=== PATIENT | female | born 1955 | race Caucasian/White ===

== ENCOUNTER 2019-09-04 00:24 | Day surgery (SDC) | payer OTHER, SELFPAY ==
[2019-08-22 09:19] VITALS: BMI 28.1
[2019-09-04] VITALS (7 sets, daily range): BP systolic 121–174; BP diastolic 76–89; PULSE 77–90; RESP 15–20; TEMP 36.3–36.7; O2SAT 93–100
--- NOTE | ~2019-09-04 | XR_ITS ---
EXAMINATION: XR retrograde pyelo w/stent RT EXAM DATE: 09/04/2019 12:49 INDICATION: Bladder mass. TECHNIQUE: Fluoroscopy used during XR retrograde pyelo w/stent RT performed by Dr. Ramana saavedra MD. The DAP for this procedure was 0.3 mGym2. FINDINGS: Right ureter was cannulated, injected and a double-J ureteral stent was placed in expected position. Correlate with procedure note. IMPRESSION: Fluoroscopy used during XR retrograde pyelo w/stent RT. Reviewed, dictated and finalized at location A. [employer]
--- NOTE | 2019-09-04 10:09 | WPDHPUPDATE1 ---
History and Physical Update Update Date/Time: 09/04/19 10:09 History and Physical has been reviewed, including an updated exam of the patient. There are NO changes in the patient's condition. Risks, benefits, and alternatives have been discussed and questions answered. Patient agrees to proceed with procedure.
[2019-09-04] MEDS: LACTATED RINGERS 1,000 ML 30 ML IV CONT ×2 (11:20→12:53)
--- NOTE | 2019-09-04 11:36 | WPDANESEPPF ---
Anes - Initial Pre Proc Eval Procedure: Operation Date: 09/04/19 13:00 Proposed Procedures p Trans Urethral Resection Bladder Tumor - Ramana Dominguez MD s Possible Right Ureteroscopy, Possible Right Retrograde, Possible Stent Placement - Ramana Dominguez MD Date/Time: 09/04/19 11:36 Surgeon: Ramana Dominguez MD Pre Op Diagnosis: Bladder Mass Patient Data Age: 64 Gender: F Height: 5 ft 8 in Weight: 84 kg Allergies Allergy/AdvReac Type Severity Reaction Status Date / Time sulfabenzamide Allergy Intermediate Hives Verified 08/22/19 09:24 tetracycline Allergy Intermediate Hives Verified 08/22/19 09:24 Zpklcvb-Zjh-And Reductase Allergy Mild Joint Pain Verified 08/22/19 09:24 Inhibitor Home Medications Medication Instructions Recorded Confirmed Type amlodipine 5 mg tablet 5 mg PO DAILY #90 tablet 07/04/19 08/22/19 Rx lisinopril 40 mg tablet 40 mg PO DAILY #90 tablet 07/04/19 08/22/19 Rx metoprolol succinate 50 mg 50 mg PO DAILY #90 tablet 07/04/19 08/22/19 Rx tablet,extended release 24 hr pravastatin 10 mg PO DAILY 08/22/19 08/22/19 History Patient hx anesthesia problems: none Family hx anesthesia problems: none Anes - Eval Final PreProcedure Day of Procedure 09/04/19 11:36 Patient weight: overweight Heart: regular rate and rhythm Lungs: clear to auscultation Airway: Mallampati scale class II Neurological: alert and oriented Last oral intake: >/= 8 hours ASA classification: II Emergent: no Anesthetic plan: proceed Anesthesia type and monitoring: general LMA and standard monitoring Informed Consent: The patient's anesthetic plan and its attendant risks and benefits were discussed with the patient/family/POA. Questions were solicited and answers provided to the satisfaction of the patient/family/POA.
[2019-09-04] MEDS: ceFAZolin 2 GM/D5W 50 ML 2 GM/50 ML BAG IVPB (11:53)
--- NOTE | 2019-09-04 12:49 | PM.PROC ---
Procedure Note - Detailed Date of procedure: 09/04/19 Pre-op diagnosis: Bladder Mass Post-op diagnosis: same Procedure performed: Cystoscopy with transurethral resection of large bladder tumor 5 to 6 cm area with unroofing of right ureteral orifice, right retrograde pyelogram, right ureteral stent placement 6 [place] Islander contour Description of procedure: Patient was taken to the operative suite and correctly identified. Once general anesthesia was obtained she was placed in a low lying dorsal lithotomy position and prepped and draped in the usual sterile fashion. A 24 [place] Islander resectoscope sheath was inserted into the bladder. She has a large tumor along the floor on the right which is right adjacent to the right ureteral orifice. There are actually some papillary fronds that are on the orifice ridge. The area in question is approximately 6 cm as there are other lesions posterior and lateral to this large tumor. We went ahead and resected the tumor. The tumor base was resected separately and sent for pathology. In order to resect this completely we had to unroof the right ureteral orifice. We were then able to manipulate a Glidewire into the orifice. It appeared slightly tight thus we did not attempt ureteroscopy at this setting. We placed a [place] over the guidewire and did a pyelogram for confirmation placement of the wire. We did not see any discrete filling defects in the renal collecting system. She the a 6 [place] Islander contour stent was then placed with the proximal end coiled in the renal pelvis and the distal end in the bladder. 2% viscous lidocaine was inserted into the urethra. Sixteen [place] Islander Lomax was placed and inflated with 10 cc of sterile water. This will be removed in a day or 2. The stent will remain in for a good 4-6 weeks. We will make a decision regarding ureteroscopy with cystoscopy in the OR in 3 months time Anesthesia: BULMARO Surgeon: Ramana Dominguez MD Drains: Yes Packing: No Pathology: yes Complications: No immediate complications Condition: stable Disposition: PACU
--- NOTE | 2019-09-04 14:54 | SUR.PHASEII ---
1445 cameron cath bag replaced with a leg bag
== END 2019-09-04 14:52 | disposition home or self-care (01) ==
PROVIDERS: PCP Internal Medicine; Visit Provider Urology
PROC: 0TBB8ZZ Excision of Bladder, Via Natural or Artificial Opening Endoscopic (ICD-10-PCS; CPT 52240; principal; 2019-09-04 13:00)
PROC: (CPT 52352; 2019-09-04 13:00)
DX: C67.0 Malignant neoplasm of trigone of bladder (principal)
CPT/HCPCS: 52240; 52290; 74420; 88305; A9270; C1758; C1769; C2617; J0690; J1100; J2250; J2405; J2704; J3010; J7120; Q9966; Q9968

== ENCOUNTER 2020-01-25 14:20 | Outpatient (CLI) | payer OTHER, SELFPAY | END 2020-01-25 14:21 | disposition home or self-care (01) | LOC: ANHSURGERY 14:23 | PROVIDERS: PCP Internal Medicine; Visit Provider Urology | DX: Z01.818 Encounter for other preprocedural examination (principal); C67.9 Malignant neoplasm of bladder, unspecified | CPT/HCPCS: 87086 ==

== ENCOUNTER 2020-02-02 06:11 | Outpatient (CLI) | payer OTHER, SELFPAY ==
[2020-02-02 17:27] LABS: SARS-CoV-2 RNA PCR Negative
== END 2020-02-02 06:12 | disposition home or self-care (01) ==
LOC: ANHCOVIDDT 06:12
PROVIDERS: PCP Internal Medicine; Visit Provider Urology
DX: Z01.812 Encounter for preprocedural laboratory examination (principal); Z11.59 Encounter for screening for other viral diseases
CPT/HCPCS: 87635; C9803; U0003

== ENCOUNTER 2020-02-05 02:54 | Day surgery (SDC) | payer OTHER, SELFPAY ==
[2020-01-24 14:41] VITALS: BMI 28.3
--- NOTE | ~2020-02-05 | XR_ITS ---
EXAMINATION: XR retrograde pyelogram RT DATE: 02/05/2020 15:27 CDT INDICATION: History of bladder mass. History of renal stones. TECHNIQUE: 5 fluoroscopic images from right retrograde pyelogram are submitted for review. 14 seconds of fluoroscopy. FINDINGS: There is retrograde filling of the right ureter which is normal in course and caliber. Righ t renal collecting system demonstrates normal calyceal cupping. No filling defects are identified. No hydronephrosis. Bladder not visualized. IMPRESSION: 1. Unremarkable right retrograde pyelogram.. Correlate with real time procedural findings for detail s. Reviewed, dictated and finalized at location A. IMPRESSION: 1. Unremarkable right retrograde pyelogram.. Correlate with real time procedur al findings for details.
[2020-02-05 06:51] VITALS: BP 113/64; PULSE 67; RESP 20; TEMP 36.9; O2SAT 98
[2020-02-05] MEDS: LACTATED RINGERS 1,000 ML 30 ML IV CONT ×2 (07:00→09:38)
--- NOTE | 2020-02-05 07:17 | WPDHPUPDATE1 ---
History and Physical Update Update Date/Time: 02/05/20 07:17 History and Physical has been reviewed, including an updated exam of the patient. There are NO changes in the patient's condition. Risks, benefits, and alternatives have been discussed and questions answered. Patient agrees to proceed with procedure.
[2020-02-05 07:33] LABS: INR 0.9; Prothrombin Time 11.9 Seconds (11.1-14.7)
[2020-02-05 07:34] LABS: Partial Thromboplastin Time 28.6 SECONDS (22.3-36.8)
--- NOTE | 2020-02-05 08:13 | WPDANESEPPF ---
Anes - Initial Pre Proc Eval Procedure: Operation Date: 02/05/20 08:30 Proposed Procedures p Cystoscopy, Right Retrograde Pyelogram, Bladder Biopsy with Fulgeration, Possible Right Ureteroscopy - Ramana Dominguez MD Date/Time: 02/05/20 08:13 Surgeon: Ramana Dominguez MD Pre Op Diagnosis: Bladder Cancer,Gross Hematuria Patient Data Age: 64 Gender: F Height: 5 ft 8 in Weight: 84.2 kg Last Vital Signs Temp 36.9 C 02/05/20 06:51 Pulse 67 02/05/20 06:51 Resp 20 02/05/20 06:51 BP 113/64 02/05/20 06:51 Pulse Ox 98 02/05/20 06:51 Allergies Allergy/AdvReac Type Severity Reaction Status Date / Time sulfabenzamide Allergy Intermediate Hives Verified 02/05/20 07:56 tetracycline Allergy Intermediate Hives Verified 02/05/20 07:56 Home Medications Medication Instructions Recorded Confirmed Type amlodipine 10 mg tablet 10 mg PO DAILY #90 tablet 12/18/19 02/05/20 Rx lisinopril 40 mg tablet 40 mg PO DAILY #90 tablet 12/18/19 01/24/20 Rx metoprolol succinate 50 mg 50 mg PO DAILY #90 tablet 12/18/19 02/05/20 Rx tablet,extended release 24 hr pravastatin 20 mg tablet 20 mg PO DAILY #90 tablet 12/18/19 01/24/20 Rx Laboratory Tests 02/05/20 07:01 PT 11.9 Seconds Seconds (11.1-14.7) INR 0.9 APTT 28.6 SECONDS SECONDS (22.3-36.8) Patient hx anesthesia problems: none Family hx anesthesia problems: none Anes - Eval Final PreProcedure Day of Procedure 02/05/20 08:13 Patient weight: overweight Heart: regular rate and rhythm Lungs: clear to auscultation Airway: Mallampati scale class II Neurological: alert and oriented Last oral intake: >/= 8 hours ASA classification: II Emergent: no Anesthetic plan: proceed Anesthesia type and monitoring: general LMA and standard monitoring Informed Consent: The patient's anesthetic plan and its attendant risks and benefits were discussed with the patient/family/POA. Questions were solicited and answers provided to the satisfaction of the patient/family/POA.
[2020-02-05] MEDS: ceFAZolin 2 GM/D5W 50 ML 2 GM/50 ML BAG IVPB (08:55)
[2020-02-05] MEDS: LIDOCAINE HCL 2% GEL UROJET 10 ML PKG MUCOUS MEM (09:08)
[2020-02-05] MEDS: KETOROLAC 30 MG/ML VIAL (*BKC) 15 MG IV PUSH (09:29)
--- NOTE | 2020-02-05 09:31 | P.OP_ITS ---
Procedure Note - Detailed Date of procedure: 02/05/20 Pre-op diagnosis: Bladder Cancer,Gross Hematuria Post-op diagnosis: same Procedure performed: Cystoscopy, right retrograde pyelogram, flexible and and rigid right ureteroscopy, bladder biopsy with fulguration. Description of procedure: Patient was taken the operative suite and correctly identified. Once general anesthesia was obtained she was placed in the dorsal lithotomy position prepped and draped usual sterile fashion. Twenty-two Palauan scope was inserted in the bladder. The bladder inspected in its entirety. There are 3 small little papillary lesions near the dome of the bladder. Each 1 measures approximately couple mm. The rest of the bladder shows no evidence of tumors. Left ureteral orifice normal anatomic position. The right ureteral orifice actually appears patent from a prior unroofing. At this point time a 5 Palauan ureteral catheter was inserted into the right ureteral orifice and a pyelogram was performed. There were no filling defects. Given the location of the prior tumor as well as unroofing of the orifice we went ahead and placed a rigid ureteral scope into the distal orifice. There were no distal tumors noted at this time. Of any flexible ureteral scope was then inserted all the way up to the kidney and the kidney was inspected in its entirety. There are no tumors or irregularities noted at this time. Scope was removed. We then went ahead and used a cold cup biopsy to really move the small lesions at the dome of the bladder. A [place] was used to fulgurate the base. There was good hemostasis at termination of procedure. 2% viscous lidocaine was inserted into the urethra and patient is taken to recovery room stable condition. Path results will be available in a week's time. She is instructed to call for that. The most lik jostin scenario is that she will require a office visit was cysto in 3 months time. Anesthesia: GLMA Surgeon: Ramana Dominguez MD Drains: No Packing: No Pathology: yes Complications: No immediate complications Condition: stable Disposition: PACU
[2020-02-05 09:38] VITALS: BP 97/60; PULSE 60; RESP 16; O2SAT 100
[2020-02-05 09:50] VITALS: BP 118/65; PULSE 58; RESP 12; O2SAT 99
[2020-02-05 10:00] VITALS: BP 127/68; PULSE 60; RESP 12; O2SAT 100
[2020-02-05 10:03] VITALS: BP 103/89; PULSE 70; RESP 12
[2020-02-05 10:25] VITALS: BP 137/70; PULSE 67; RESP 12
== END 2020-02-05 10:43 | disposition home or self-care (01) ==
PROVIDERS: PCP Internal Medicine; Visit Provider Urology
PROC: (CPT 52352; principal; 2020-02-05 08:30)
DX: C67.1 Malignant neoplasm of dome of bladder (principal)
CPT/HCPCS: 52204; 36415; 74420; 85610; 85730; 87635; 88305; A9270; C1758; C1769; C1887; C9803; J0690; J1885; J2250; J2370; J2405; J2704; J3010; J7120; Q9966; U0003

== ENCOUNTER 2020-04-03 10:10 | Outpatient (CLI) | payer OTHER, SELFPAY ==
[2020-04-03 10:42] LABS: Basophils Absolute Auto 0.1 K/mm3 (0.0-0.1); Basophils Percent Auto 0.8 % (0.2-1.2); Eosinophils Absolute Auto 0.1 K/mm3 (0-0.3); Eosinophils Percent Auto 1.2 % (0-4.4); Hematocrit 44.4 % (37.0-47.0); Hemoglobin 15.5 g/dL (12.0-15.0); Immature Granulocyte Absolute 0.03 K/mm3 (0.00-0.031); Immature Granulocyte Percent A 0.3 % (0-0.5); Lymphocytes Absolute Auto 1.69 K/mm3 (0.9-3.2); Lymphocytes Percent Auto 18.9 % (18.3-44.2); Mean Corpuscular HGB Conc 34.9 g/dl (32-36); Mean Corpuscular Hemoglobin 30.2 pg (26-34); Mean Corpuscular Volume 86.5 fl (80-100); Mean Platelet Volume 11.6 fl (7.4-10.4); Monocytes Absolute Auto 0.6 K/mm3 (0.1-0.6); Monocytes Percent Auto 6.3 % (2.6-8.5); Neutrophils Absolute Auto 6.5 K/mm3 (1.3-6.7); Neutrophils Percent Auto 72.5 % (45.5-73.1); Platelet Count Result 187 k/mm3 (150-375); Red Blood Count 5.13 M/mm3 (4.2-5.4); Red Cell Distribution Width 12.8 % (11.5-14.5); White Blood Count 8.9 K/mm3 (4.5-10.0)
[2020-04-03 10:55] LABS: Alanine Aminotransferase 14 U/L (4-35); Albumin Level 4.7 g/dL (3.5-5.1); Alkaline Phosphatase 107 U/L (38-126); Anion Gap 7 mmol/L (8-16); Aspartate Amino Transferase 29 U/L (14-36); Bilirubin,Total 0.6 mg/dL (0.2-1.3); Blood Urea Nitrogen 14 mg/dL (7-17); Calcium 9.6 mg/dL (8.4-10.2); Carbon Dioxide 27 mmol/L (22-30); Chloride 103 mmol/L (98-107); Cholesterol 236 mg/dL (0-200); Estimated Glomerular Filt Rate > 60; Glucose 104 mg/dL (65-105); HDL Direct 49 mg/dL; Potassium 3.8 mmol/L (3.4-5.0); Sodium 137 mmol/L (137-145); Triglycerides 178 mg/dL (<150)
[2020-04-03 11:06] LABS: LDL Cholesterol Direct 148 mg/dL
== END 2020-04-03 10:11 | disposition home or self-care (01) ==
PROVIDERS: PCP Internal Medicine; Visit Provider Internal Medicine
DX: I10 Essential (primary) hypertension (principal); E78.5 Hyperlipidemia, unspecified
CPT/HCPCS: 36415; 80053; 80061; 84443; 85025

== ENCOUNTER 2020-05-28 10:17 | Outpatient (CLI) | payer OTHER, SELFPAY ==
[2020-05-28 11:23] LABS: INR 0.9; Prothrombin Time 12.2 Seconds (11.1-14.7)
[2020-05-28 11:24] LABS: Partial Thromboplastin Time 30.9 SECONDS (22.3-36.8)
== END 2020-05-28 10:18 | disposition home or self-care (01) ==
LOC: ANHSURGERY 10:20
PROVIDERS: PCP Internal Medicine; Visit Provider Urology
DX: C67.9 Malignant neoplasm of bladder, unspecified (principal); Z01.818 Encounter for other preprocedural examination
CPT/HCPCS: 36415; 85610; 85730; 87086

== ENCOUNTER 2020-05-31 01:25 | Outpatient (CLI) | payer OTHER, SELFPAY ==
[2020-05-31 22:13] LABS: SARS-CoV-2 RNA PCR Negative
== END 2020-05-31 01:26 | disposition home or self-care (01) ==
LOC: ANHCOVIDDT 01:26
PROVIDERS: PCP Internal Medicine; Visit Provider Urology
DX: Z01.812 Encounter for preprocedural laboratory examination (principal); Z20.828 Contact with and (suspected) exposure to other viral communicable diseases
CPT/HCPCS: 87635; C9803; U0003

== ENCOUNTER 2020-06-03 00:21 | Day surgery (SDC) | payer OTHER, SELFPAY ==
[2020-05-22 08:52] VITALS: BMI 29.4
--- NOTE | 2020-06-02 14:22 | WPDANESEPPF ---
Anes - Initial Pre Proc Eval Procedure: Operation Date: 06/03/20 12:00 Proposed Procedures p Cystoscopy - Ramana Dominguez MD s Transurethral Resection Bladder Tumor With Mitomycin C Instillation - Ramana Dominguez MD Date/Time: 06/02/20 14:22 Surgeon: Ramana Dominguez MD Pre Op Diagnosis: Bladder Cancer Patient Data Age: 65 Gender: F Height: 1.69 m Weight: 84 kg Allergies Allergy/AdvReac Type Severity Reaction Status Date / Time sulfabenzamide Allergy Intermediate Hives Verified 06/03/20 10:45 tetracycline Allergy Intermediate Hives Verified 06/03/20 10:45 Home Medications Medication Instructions Recorded Confirmed Type amlodipine 10 mg tablet 10 mg PO DAILY #90 tablet 12/18/19 06/03/20 Rx lisinopril 40 mg tablet 40 mg PO DAILY #90 tablet 12/18/19 06/03/20 Rx metoprolol succinate 50 mg 50 mg PO DAILY #90 tablet 12/18/19 06/03/20 Rx tablet,extended release 24 hr pravastatin 40 mg tablet 40 mg PO DAILY #90 tablet 04/10/20 06/03/20 Rx multivitamin [Multi-Daily] 1 tablet QAM 05/22/20 06/03/20 History Patient hx anesthesia problems: none Family hx anesthesia problems: none PMF Past Medical History Medical History Bladder cancer Dyslipidemia Essential hypertension GERD (gastroesophageal reflux disease) Overweight (BMI 25.0-29.9) Tobacco use Social History Social History Additional smoking assessment comments: STATES 1/2PK/DAY-QUIT JUL 2019, BUT HAS 1 CIGARETT/WEEK Alcohol intake: never Substance use: current Substance use type: marijuana Other substance usage details: STATES OCCASIONAL USUAGE Living arrangements: alone Spiritual care concerns: No Anes - Eval Final PreProcedure Day of Procedure 06/02/20 14:22 Patient weight: obese Heart: regular rate and rhythm Lungs: clear to auscultation and normal air movement Airway: Mallampati scale class II Neurological: alert and oriented Last oral intake: >/= 8 hours ASA classification: III Emergent: no Anesthetic plan: proceed Anesthesia type and monitoring: general GIVS Informed Consent: The patient's anesthetic plan and its attendant risks and benefits were discussed with the patient/family/POA. Questions were solicited and answers provided to the satisfaction of the patient/family/POA.
[2020-06-03] VITALS (9 sets, daily range): BP systolic 119–137; BP diastolic 54–79; PULSE 63–80; RESP 12–18; TEMP 36.2–36.9; O2SAT 92–100
[2020-06-03] MEDS: LACTATED RINGERS 1,000 ML 30 ML IV CONT (10:37)
--- NOTE | 2020-06-03 12:03 | WPDHPUPDATE1 ---
History and Physical Update Update Date/Time: 06/03/20 12:03 History and Physical has been reviewed, including an updated exam of the patient. There are NO changes in the patient's condition. Risks, benefits, and alternatives have been discussed and questions answered. Patient agrees to proceed with procedure. Proceed with cysto, turbt
--- NOTE | 2020-06-03 12:19 | PM.IMHP ---
H&P: HPI History of Present Illness Date/Time: 06/03/20 12:19 Chief complaint: Bladder Cancer Narrative: Soumya Vasquez is a 65 year old female with history of bladder carcinoma presents for cysto, turbt Review of Systems Review of Systems: All systems reviewed & are unremarkable except as noted in HPI and below PMFSH Past Medical History Medical History Bladder cancer Dyslipidemia Essential hypertension GERD (gastroesophageal reflux disease) Overweight (BMI 25.0-29.9) Tobacco use Social History Social History Additional smoking assessment comments: STATES 1/2PK/DAY-QUIT JUL 2019, BUT HAS 1 CIGARETT/WEEK Alcohol intake: never Substance use: current Substance use type: marijuana Other substance usage details: STATES OCCASIONAL USUAGE Living arrangements: alone Spiritual care concerns: No Meds Home Medications and Allergies Home Medications Medication Instructions Recorded Confirmed Type amlodipine 10 mg tablet 10 mg PO DAILY #90 tablet 12/18/19 06/03/20 Rx lisinopril 40 mg tablet 40 mg PO DAILY #90 tablet 12/18/19 06/03/20 Rx metoprolol succinate 50 mg 50 mg PO DAILY #90 tablet 12/18/19 06/03/20 Rx tablet,extended release 24 hr pravastatin 40 mg tablet 40 mg PO DAILY #90 tablet 04/10/20 06/03/20 Rx multivitamin [Multi-Daily] 1 tablet QAM 05/22/20 06/03/20 History Allergies Allergy/AdvReac Type Severity Reaction Status Date / Time sulfabenzamide Allergy Intermediate Hives Verified 06/03/20 10:45 tetracycline Allergy Intermediate Hives Verified 06/03/20 10:45 Vital Signs Vital Signs - 24 hr 06/03/20 10:51 Temperature 36.9 C Pulse Rate 78 Respiratory Rate 18 Blood Pressure 135/79 Pulse Oximetry 98 Exam Const: General: cooperative Orientation/consciousness: oriented to person, oriented to place, oriented to time and patient oriented x3 HENMT: Head: normal to inspection Ears: hearing grossly normal bilaterally General nose exam: Normal external nose present Face and sinus: normal facial exam Eyes: General: appearance normal, both eyes and all related structures Chest: Chest palpation & inspection: normal inspection of the chest Resp: Effort & Inspection: normal respiratory effort Cardio: Rate: regular rate GI: GI Palp: No abdominal tenderness Assessment and Plan Assessment and plan (1) Bladder cancer: Qualifiers: Bladder location: unspecified site Qualified Code(s): C67.9 - Malignant neoplasm of bladder, unspecified Code(s): C67.9 - Malignant neoplasm of bladder, unspecified Status: Acute Additional Plan cysto with turbt possible mitomycin
[2020-06-03] MEDS: ceFAZolin 2 GM/D5W 50 ML 2 GM/50 ML BAG IVPB (12:52)
[2020-06-03] MEDS: LIDOCAINE HCL 2% GEL UROJET 10 ML PKG MUCOUS MEM (13:25)
--- NOTE | 2020-06-03 13:32 | PM.PROC ---
Procedure Note - Detailed Date of procedure: 06/03/20 Pre-op diagnosis: Bladder Cancer Post-op diagnosis: same Procedure performed: Cysto with transurethral resection bladder tumor small area Description of procedure: Patient is taken the operative suite and correctly identified. Once anesthesia was obtained she was placed in dorsal lithotomy position prepped draped usual sterile fashion. Twenty-four [place] resectoscope sheath inserted in the bladder. She has a small tumor on the floor just distal to the left ureteral orifice measuring approximately 5-6 mm. Results some irregularity just distal to the right UO which we fulgurated. She had approximately 4 tumors near the dome which we fulgurated her excised. There was good hemostasis at termination of procedure. Sixteen [place] Lomax was placed after 2% viscous lidocaine was inserted. She is taken recovery room stable condition where mitomycin will be instilled. Anesthesia: GLMA Surgeon: Ramana Dominguez MD Drains: Yes Packing: No Pathology: yes Complications: No immediate complications Condition: stable Disposition: PACU
--- NOTE | 2020-06-03 14:13 | PM.PROC ---
Procedure Note - Detailed Date of procedure: 06/03/20 Pre-op diagnosis: Bladder Cancer Post-op diagnosis: same Procedure performed: Mitomycin installation Description of procedure: patient is in the recovery room. Sixteen Polish Lomax is indwelling. She was prepped in a sterile fashion the mitomycin 40 mg in 40 cc was instilled without difficulty. She will then rotated with 15 minutes for an hour. It will be removed at termination of this time frame. Catheter will be removed and patient will call for results in a week's time. Anesthesia: none Surgeon: Ramana Dominguez MD Drains: Yes Packing: No Pathology: none sent Complications: No immediate complications Condition: stable Disposition: PACU
[2020-06-03] MEDS: fentaNYL CITRATE INJ (*CRX) 100 MCG/2 ML VIAL 25 MCG IV PUSH ×4 (14:14→14:40)
== END 2020-06-03 15:55 | disposition home or self-care (01) ==
PROVIDERS: PCP Internal Medicine; Visit Provider Urology
PROC: (CPT 52352; principal; 2020-06-03 12:00)
PROC: 0TBB8ZZ Excision of Bladder, Via Natural or Artificial Opening Endoscopic (ICD-10-PCS; CPT 52234; 2020-06-03 12:00)
DX: C67.1 Malignant neoplasm of dome of bladder (principal); C67.0 Malignant neoplasm of trigone of bladder; I10 Essential (primary) hypertension; E78.5 Hyperlipidemia, unspecified; K21.9 Gastro-esophageal reflux disease without esophagitis; F17.210 Nicotine dependence, cigarettes, uncomplicated; F12.90 Cannabis use, unspecified, uncomplicated; E66.9 Obesity, unspecified; Z68.29 Body mass index [BMI] 29.0-29.9, adult
CPT/HCPCS: 52234; 51720; 88305; A9270; C1769; J0690; J1100; J2250; J2405; J2704; J3010; J7120; J9280

== ENCOUNTER 2020-10-27 10:00 | Outpatient (CLI) | payer OTHER, SELFPAY ==
[2020-10-27 10:31] LABS: Basophils Absolute Auto 0.1 K/mm3 (0.0-0.1); Basophils Percent Auto 0.8 % (0.2-1.2); Eosinophils Absolute Auto 0.2 K/mm3 (0-0.3); Eosinophils Percent Auto 1.9 % (0-4.4); Hematocrit 44.2 % (37.0-47.0); Hemoglobin 14.9 g/dL (12.0-15.0); Immature Granulocyte Absolute 0.01 K/mm3 (0.00-0.031); Immature Granulocyte Percent A 0.1 % (0-0.5); Lymphocytes Absolute Auto 1.81 K/mm3 (0.9-3.2); Lymphocytes Percent Auto 23.2 % (18.3-44.2); Mean Corpuscular HGB Conc 33.7 g/dl (32-36); Mean Corpuscular Hemoglobin 30.4 pg (26-34); Mean Corpuscular Volume 90.2 fl (80-100); Mean Platelet Volume 11.2 fl (7.4-10.4); Monocytes Absolute Auto 0.7 K/mm3 (0.1-0.6); Monocytes Percent Auto 9.1 % (2.6-8.5); Neutrophils Absolute Auto 5.1 K/mm3 (1.3-6.7); Neutrophils Percent Auto 64.9 % (45.5-73.1); Platelet Count Result 183 k/mm3 (150-375); Red Cell Distribution Width 12.3 % (11.5-14.5); White Blood Count 7.8 K/mm3 (4.5-10.0)
[2020-10-27 10:43] LABS: Alanine Aminotransferase 17 U/L (4-35); Albumin Level 4.4 g/dL (3.5-5.1); Alkaline Phosphatase 102 U/L (38-126); Anion Gap 6 mmol/L (8-16); Aspartate Amino Transferase 32 U/L (14-36); Bilirubin,Total 0.4 mg/dL (0.2-1.3); Blood Urea Nitrogen 14 mg/dL (7-17); Calcium 9.4 mg/dL (8.4-10.2); Carbon Dioxide 31 mmol/L (22-30); Chloride 105 mmol/L (98-107); Cholesterol 216 mg/dL (0-200); Estimated Glomerular Filt Rate > 60; Glucose 96 mg/dL (65-105); HDL Direct 51 mg/dL; Potassium 4.4 mmol/L (3.4-5.0); Sodium 142 mmol/L (137-145); Triglycerides 164 mg/dL (<150)
[2020-10-27 10:45] LABS: Hemoglobin A1C 5.4 % (<5.7)
[2020-10-27 10:54] LABS: LDL Cholesterol Direct 125 mg/dL
[2020-10-27 11:01] LABS: Creatinine Urine 304.5 mg/dL
[2020-10-27 11:06] LABS: MALB Creatinine Ratio 5.1 mg/g (0-30); Microalbumin Urine Random 15.5 mg/L (0-16.7)
[2020-10-27 11:16] LABS: Vitamin D 25 Hydroxy 38.2 ng/mL
== END 2020-10-27 10:01 | disposition home or self-care (01) ==
PROVIDERS: PCP Internal Medicine; Visit Provider Internal Medicine
DX: E78.2 Mixed hyperlipidemia (principal); I10 Essential (primary) hypertension; E55.9 Vitamin D deficiency, unspecified; Z79.899 Other long term (current) drug therapy
CPT/HCPCS: 36415; 80053; 80061; 82043; 82306; 83036; 85025

== ENCOUNTER 2020-11-10 10:54 | Outpatient (CLI) | payer OTHER, SELFPAY ==
--- NOTE | ~2020-11-10 | CT_ITS ---
EXAMINATION: CT lung screening DATE: 11/10/2020 11:22 INDICATION: Personal history of nicotine dependence, current smoker with 40 pack year history TECHNIQUE: Computed tomography (CT) of the chest was performed without intravenous contrast. The dose -length product (DLP) was 152.85 mGy-cm. Automated exposure control and iterative reconstruction tech BloomThat were employed. COMPARISON: None FINDINGS: There is mild emphysema. There is a 2 mm subpleural nodule of the left lower lobe on image 58. No pathologically enlarged thoracic lymph nodes are identified. The heart size is normal. Calcifi ed coronary artery atherosclerosis is noted. The lungs are free of acute opacities. There is no pleur al effusion or pneumothorax. There is a 2.8 cm cyst in the upper pole of the right kidney. There is m ild thoracic spondylosis. IMPRESSION: 1. Lung-RADS category 2: Benign appearance or behavior. Continue annual screening with noncontrast lo w-dose chest CT in 12 months. Reviewed, dictated and finalized at location B. IMPRESSION: 1. Lung-RADS category 2: Benign appearance or behavior. Continue annual screeni ng with noncontrast low-dose chest CT in 12 months.
== END 2020-11-10 10:55 | disposition home or self-care (01) ==
PROVIDERS: PCP Internal Medicine; Visit Provider Internal Medicine
DX: Z87.891 Personal history of nicotine dependence (principal)
CPT/HCPCS: 71271

== ENCOUNTER 2020-12-17 10:26 | Outpatient (CLI) | payer OTHER, SELFPAY ==
--- NOTE | 2020-12-17 10:30 | ECG_ITS ---
Measurements Intervals [place] Rate: 68 P: 59 NM: 131 QRS: 54 QRSD: 101 T: 40 QT: 399 QTc: 427 Interpretive Statements SINUS RHYTHM POSSIBLE LEFT ATRIAL ENLARGEMENT BORDERLINE ECG Electronically Signed On 12-17-2020 11:11:47 CDT by Vinicius Lopez D.O.
[2020-12-17 11:38] LABS: Basophils Absolute Auto 0.1 K/mm3 (0.0-0.1); Basophils Percent Auto 0.7 % (0.2-1.2); Eosinophils Absolute Auto 0.2 K/mm3 (0-0.3); Eosinophils Percent Auto 1.7 % (0-4.4); Hematocrit 44.3 % (37.0-47.0); Hemoglobin 15.1 g/dL (12.0-15.0); Immature Granulocyte Absolute 0.03 K/mm3 (0.00-0.031); Immature Granulocyte Percent A 0.3 % (0-0.5); Lymphocytes Absolute Auto 2.21 K/mm3 (0.9-3.2); Lymphocytes Percent Auto 22.1 % (18.3-44.2); Mean Corpuscular HGB Conc 34.1 g/dl (32-36); Mean Corpuscular Hemoglobin 30.6 pg (26-34); Mean Corpuscular Volume 89.7 fl (80-100); Monocytes Absolute Auto 0.7 K/mm3 (0.1-0.6); Monocytes Percent Auto 7.2 % (2.6-8.5); Neutrophils Absolute Auto 6.8 K/mm3 (1.3-6.7); Platelet Count Result 191 k/mm3 (150-375); Red Blood Count 4.94 M/mm3 (4.2-5.4); Red Cell Distribution Width 12.3 % (11.5-14.5)
[2020-12-17 11:48] LABS: Anion Gap 8 mmol/L (8-16); Blood Urea Nitrogen 11 mg/dL (7-17); Calcium 9.9 mg/dL (8.4-10.2); Carbon Dioxide 29 mmol/L (22-30); Chloride 103 mmol/L (98-107); Estimated Glomerular Filt Rate > 60; Glucose 99 mg/dL (65-105); INR 0.8; Potassium 3.9 mmol/L (3.4-5.0); Sodium 140 mmol/L (137-145)
[2020-12-17 11:49] LABS: Partial Thromboplastin Time 35.1 SECONDS (22.3-36.8)
== END 2020-12-17 10:27 | disposition home or self-care (01) ==
LOC: ANHSURGERY 10:28
PROVIDERS: PCP Internal Medicine; Visit Provider Urology
DX: C67.9 Malignant neoplasm of bladder, unspecified (principal); I10 Essential (primary) hypertension; Z01.818 Encounter for other preprocedural examination; R94.31 Abnormal electrocardiogram [ECG] [EKG]
CPT/HCPCS: 36415; 80048; 85025; 85610; 85730; 87086; 93005

== ENCOUNTER → 2020-12-20 01:41 | Outpatient (CLI) | payer OTHER, SELFPAY ==
[2020-12-20 19:56] LABS: SARS-CoV-2 RNA PCR Negative
== END ==
PROVIDERS: PCP Internal Medicine; Visit Provider Urology
DX: C67.9 Malignant neoplasm of bladder, unspecified (principal); Z20.822 Contact with and (suspected) exposure to COVID-19; Z01.812 Encounter for preprocedural laboratory examination
CPT/HCPCS: C9803; U0003; U0005

== ENCOUNTER 2020-12-23 02:34 | Day surgery (SDC) | payer OTHER, SELFPAY ==
[2020-12-09 15:19] VITALS: BMI 29.7
[2020-12-23] VITALS (9 sets, daily range): BP systolic 108–151; BP diastolic 63–91; PULSE 71–82; RESP 13–21; TEMP 36.3–36.4; O2SAT 94–99
--- NOTE | 2020-12-23 09:51 | WPDHPUPDATE1 ---
History and Physical Update Update Date/Time: 12/23/20 09:51 History and Physical has been reviewed, including an updated exam of the patient. There are NO changes in the patient's condition. Risks, benefits, and alternatives have been discussed and questions answered. Patient agrees to proceed with procedure.
--- NOTE | 2020-12-23 10:01 | WPDANESEPPF ---
Anes - Initial Pre Proc Eval Procedure: Operation Date: 12/23/20 12:00 Proposed Procedures p Cystoscopy with Bladder Biopsy with Fulgeration, - Ramana Dominguez MD s Possible Trans Urethral Resection Bladder Tumor with Mitomycin C - Ramana Dominguez MD Date/Time: 12/23/20 10:01 Surgeon: Ramana Dominguez MD Pre Op Diagnosis: bladder CA Patient Data Age: 65 Gender: F Height: 5 ft 6 in Weight: 83.5 kg Allergies Allergy/AdvReac Type Severity Reaction Status Date / Time sulfabenzamide Allergy Intermediate Hives Verified 12/09/20 15:18 tetracycline Allergy Intermediate Hives Verified 12/09/20 15:18 Home Medications Medication Instructions Recorded Confirmed Type multivitamin 1 tablet QAM 05/22/20 12/09/20 History amlodipine 10 mg tablet 10 mg PO DAILY #90 tablet 11/04/20 12/09/20 Rx lisinopril 40 mg tablet 40 mg PO DAILY #90 tablet 11/04/20 12/09/20 Rx metoprolol succinate 50 mg 50 mg PO DAILY #90 tablet 11/04/20 12/09/20 Rx tablet,extended release 24 hr rosuvastatin 20 mg tablet 20 mg PO DAILY #90 tablet 11/04/20 12/09/20 Rx Patient hx anesthesia problems: none Family hx anesthesia problems: none PMFSH Past Medical History Medical History Bladder cancer Dyslipidemia Essential hypertension GERD (gastroesophageal reflux disease) Overweight (BMI 25.0-29.9) Tobacco use Social History Social History Years smoked: 40 Smoking status: Current some day smoker Second hand tobacco smoke exposure: No Additional smoking assessment comments: STATES 1/2PK/DAY-QUIT JUL 2019, BUT STILL SMOKES 1 CIGARETT/WEEK Alcohol intake: never Substance use: current Substance use type: marijuana Other substance usage details: OCCASIONAL Living arrangements: alone Spiritual care concerns: No Anes - Eval Final PreProcedure Day of Procedure 12/23/20 10:01 Patient weight: overweight Heart: regular rate and rhythm Lungs: clear to auscultation Airway: Mallampati scale class II Neurological: alert and oriented Last oral intake: >/= 8 hours ASA classification: III Emergent: no Anesthetic plan: proceed Anesthesia type and monitoring: general LMA and standard monitoring Informed Consent: The patient's anesthetic plan and its attendant risks and benefits were discussed with the patient/family/POA. Questions were solicited and answers provided to the satisfaction of the patient/family/POA.
[2020-12-23] MEDS: LACTATED RINGERS 1,000 ML 30 ML IV CONT (10:09)
[2020-12-23] MEDS: ceFAZolin 2 GM/D5W 50 ML 2 GM/50 ML BAG IVPB (10:34)
[2020-12-23] MEDS: LIDOCAINE HCL 2% GEL UROJET 10 ML PKG MUCOUS MEM (10:55)
--- NOTE | 2020-12-23 10:58 | PM.PROC ---
Procedure Note - Detailed Date of procedure: 12/23/20 Pre-op diagnosis: bladder CA Post-op diagnosis: same Procedure performed: Transurethral resection of bladder tumor small less than 2 cm Description of procedure: Patient is taken the operative suite and correctly identified. Once anesthesia was obtained she was placed in dorsal lithotomy position and prepped and draped usual sterile fashion. A 24 Pakistani resectoscope sheath was inserted the bladder. She has a small papillary tumor along the left wall near the dome. We resected this and fulgurated the base. Measured about 1 cm. She then had some irregularity along the right floor lateral to the ureteral orifice. We resected this but is unclear how good of the specimen this 1 will be. Nonetheless we fulgurated the base and there was no other evidence of tumors noted. 2% viscous lidocaine was inserted urethra. An 18 Pakistani Lomax was placed. She is taken recovery room. We will plan on giving mitomycin in the recovery room. She is instructed to call for path results in 1 week time. Anesthesia: GLMA Surgeon: Ramana Dominguez MD Estimated blood loss (mL): 0 Drains: No Packing: No Pathology: yes Condition: stable Disposition: PACU
--- NOTE | 2020-12-23 11:40 | SUR.PHASEI ---
PT LAYING ON BACK FOR 15 MIN. LOPEZ CATHETER CLAMPED.
--- NOTE | 2020-12-23 11:51 | SUR.PHASEI ---
PT LAYING ON RIGHT SIDE FOR 15 MINUTES.
--- NOTE | 2020-12-23 12:01 | SUR.PHASEI ---
PT ON ABDOMEN X 15 MINUTES.
== END 2020-12-23 13:25 | disposition home or self-care (01) ==
PROVIDERS: PCP Internal Medicine; Visit Provider Urology
PROC: 0TBB8ZZ Excision of Bladder, Via Natural or Artificial Opening Endoscopic (ICD-10-PCS; CPT 52234; 2020-12-23 12:00)
DX: C67.0 Malignant neoplasm of trigone of bladder (principal); C67.2 Malignant neoplasm of lateral wall of bladder; I10 Essential (primary) hypertension; K21.9 Gastro-esophageal reflux disease without esophagitis; F17.210 Nicotine dependence, cigarettes, uncomplicated; F12.90 Cannabis use, unspecified, uncomplicated
CPT/HCPCS: 52234; 51720; 36415; 80048; 85025; 85610; 85730; 87086; 88305; 93005; A9270; C9803; J0690; J1100; J1170; J2250; J2405; J2704; J3010; J7120; J9280; U0003; U0005

== ENCOUNTER 2021-04-15 11:11 | Outpatient (CLI) | payer OTHER, SELFPAY ==
[2021-04-15 11:51] LABS: Cholesterol 155 mg/dL (0-200); HDL Direct 57 mg/dL; Triglycerides 131 mg/dL (<150)
[2021-04-15 12:03] LABS: LDL Cholesterol Direct 69 mg/dL
== END 2021-04-15 11:12 | disposition home or self-care (01) ==
LOC: ANHLAB 11:12
PROVIDERS: PCP Internal Medicine; Visit Provider Internal Medicine
DX: E78.2 Mixed hyperlipidemia (principal)
CPT/HCPCS: 36415; 80061

== ENCOUNTER 2021-06-15 11:08 | Outpatient (CLI) | payer OTHER, SELFPAY ==
--- NOTE | ~2021-06-15 | XR_ITS ---
EXAMINATION: XR hand RT 2V DATE: 06/15/2021 11:23 INDICATION: Right hand fifth digit injury. TECHNIQUE: 2 views of right hand were obtained. COMPARISON: None. FINDINGS: Bone alignment is normal. No fracture. There is mild osteoarthritis of first carpometacarpa l joint, first metacarpophalangeal joint, and second, third, and fifth distal interphalangeal joints. IMPRESSION: 1. Mild polyarticular osteoarthritis. Reviewed, dictated and finalized at location A. OL COMMANDER
== END 2021-06-15 11:09 | disposition home or self-care (01) ==
LOC: ANHIMG 11:13
PROVIDERS: PCP Internal Medicine; Visit Provider Internal Medicine
DX: M19.041 Primary osteoarthritis, right hand (principal)
CPT/HCPCS: 73120

== ENCOUNTER 2021-08-04 09:44 | Outpatient (CLI) | payer OTHER, SELFPAY ==
--- NOTE | ~2021-08-04 | MM_ITS ---
EXAMINATION: MM screening [facility] BI w shannon HISTORY: Screening mammogram TECHNIQUE: Craniocaudal and mediolateral oblique 3-D tomosynthesis images were obtained and synthetic 2-D images were generated. CAD analysis was submitted and interpreted. COMPARISON: 07/30/2019, 08/26/2004 BREAST PARENCHYMAL COMPOSITION: There are scattered areas of fibroglandular density. FINDINGS: RIGHT BREAST: An asymmetry is present in the middle third of the outer breast best appreciated 8 cm f rom the nipple on the craniocaudal view. LEFT BREAST: There are indeterminate grouped calcifications posterior third of the lower, slightly ou ter breast 9.5 cm from the nipple. IMPRESSION: 1. Bilateral breast findings as described above. 2. Additional mammographic views of the breasts and possible right breast ultrasound are recommended. BI-RADS Category 0: Incomplete: Needs additional imaging evaluation. Reviewed, dictated and finalized at location A. OR MATERIALS PLANNER IMPRESSION: 1. Bilateral breast findings as described above. 2. Additional mammographic views of the breasts and possible right breast ultra sound are recommended. BI-RADS Category 0: Incomplete: Needs additional imaging evaluation.
== END 2021-08-04 09:45 | disposition home or self-care (01) ==
LOC: ANHIMG 09:45
PROVIDERS: PCP Internal Medicine; Visit Provider Internal Medicine
DX: Z12.31 Encounter for screening mammogram for malignant neoplasm of breast (principal); R92.8 Other abnormal and inconclusive findings on diagnostic imaging of breast
CPT/HCPCS: 77063; 77067

== ENCOUNTER 2021-09-30 10:33 | Outpatient (CLI) | payer OTHER, SELFPAY | END 2021-09-30 10:34 | disposition home or self-care (01) | LOC: ANHSURGERY 10:38 | PROVIDERS: PCP Internal Medicine; Visit Provider Urology | DX: C67.9 Malignant neoplasm of bladder, unspecified (principal) | CPT/HCPCS: 87086 ==

== ENCOUNTER 2021-10-06 00:53 | Day surgery (SDC) | payer OTHER, SELFPAY ==
[2021-09-24 09:19] VITALS: BMI 31.5
--- NOTE | 2021-09-24 09:27 | PC.NURSE ---
Report to the Outpatient Waiting Room, entrance under the green pavilion located off [facility], at time _1130_ on date _10/06/21_. OR Time: __1:30 PM_. - You and your visitor will be asked a series of questions to screen for COVID 19 for your protection. - A mask is required within the hospital. Preoperative COVID Testing Requirements: NONE Patients may have clear liquids (water, carbonated beverages, clear teas, apple juice) until 3 hours prior to surgery (1030 AM) with a maximum of 20 ounces. - No food from midnight until time of surgery Take the following medications with a SIP of water the morning of surgery: _AMLODIPINE, METOPROLOL_ Medications to discontinue per physician _N/A_ Please no make-up, nail german, hairspray, perfume, deodorant, or body powder the day of surgery. No jewelry (including any body piercings) or valuables the day of surgery, leave them at home. Please take a shower or bath the night before, or the morning of, surgery with an antibacterial soap. Wear comfortable, loose fitting clothing. - Jewelry must be removed prior to entering the operating room. Rings and piercings that are not removed may be cut off. - The hospital will not accept responsibility for valuables. - Please leave all valuables, including medications, at home the day of surgery. If you are going home after surgery, a licensed tank truck driver must drive you home. - NO public transportation without another adult. - We recommend that an adult stay with you for 24 hours following discharge. - We also recommend that you do not drive, make important decision, drink alcoholic beverages, or take any drugs that were not prescribed by your health care provider for at least 24 hours after your discharge time. One visitor will be allowed to accompany the patient into the hospital. Patients visitor will be instructed to remain with patient at all times or leave the building. We will allow the visitor to come back to the postoperative area when patient is ready. Follow any additional instructions given to you from your surgeon. Telephone instructions given to ____PT and asked if any additional questions and then verbalized understanding. Patient advised to call surgeon office or pre surgery nurse liaisonMAXINE [phone] if any additional questions.
--- NOTE | 2021-10-05 14:07 | WPDANESEPPF ---
Anes - Initial Pre Proc Eval Procedure: Operation Date: 10/06/21 13:00 Proposed Procedures p Cystoscopy, Bladder Biopsy, Fulguration - Ramana Dominguez MD Date/Time: 10/05/21 14:07 Surgeon: Ramana Dominguez MD Pre Op Diagnosis: bladder CA Patient Data Age: 66 Gender: F Height: 1.68 m Weight: 88.63 kg Allergies Allergy/AdvReac Type Severity Reaction Status Date / Time sulfabenzamide Allergy Intermediate Hives Verified 10/06/21 11:22 tetracycline Allergy Intermediate Hives Verified 10/06/21 11:22 Home Medications Medication Instructions Recorded Confirmed Type amlodipine 10 mg PO QAM 09/24/21 10/06/21 History lisinopril 40 mg PO QAM 09/24/21 10/06/21 History metoprolol succinate 50 mg PO QAM 09/24/21 10/06/21 History rosuvastatin 20 mg PO QAM 09/24/21 10/06/21 History multivitamin 1 cap PO DAILY 10/06/21 10/06/21 History Patient hx anesthesia problems: none Family hx anesthesia problems: none Results Review: All pre-operative results and documents have been reviewed as part of the pre-operative evaluation. [facility] Past Medical History Medical History Bladder cancer Dyslipidemia Essential hypertension GERD (gastroesophageal reflux disease) Obesity Tobacco use Social History Social History (Updated 06/15/21 @ 10:40 by Brisa Burr MA) Smoking packs per day: 0.5 Smoking cigarettes per day: 10.0 Years smoked: 40 Smoking pack-years: 20.00 Smoking status: Light tobacco smoker Tobacco type: cigarettes Second hand tobacco smoke exposure: Yes Additional smoking assessment comments: QUIT 2019, STILL SMOKES 1 CIGARETTE/WEEK Alcohol intake: never Substance use: current Substance use type: marijuana Other substance usage details: OCCASIONALLY Last use: 09/26/21 Living arrangements: alone Spiritual care concerns: No Anes - Eval Final PreProcedure Day of Procedure 10/05/21 14:07 Patient weight: obese Heart: regular rate and rhythm Lungs: clear to auscultation and normal air movement Airway: Mallampati scale class II Neurological: alert and oriented Last oral intake: >/= 8 hours ASA classification: III Emergent: no Anesthetic plan: proceed Anesthesia type and monitoring: general LMA Results Review: All pre-operative results and documents have been reviewed as part of the pre-operative evaluation. Informed Consent: The patient's anesthetic plan and its attendant risks and benefits were discussed with the patient/family/POA. Questions were solicited and answers provided to the satisfaction of the patient/family/POA.
[2021-10-06 11:24] VITALS: BP 138/76; PULSE 76; RESP 16; TEMP 36.9; O2SAT 98
[2021-10-06] MEDS: LACTATED RINGERS 1,000 ML 30 ML IV CONT (11:37)
--- NOTE | 2021-10-06 12:59 | WPDHPUPDATE1 ---
History and Physical Update Update Date/Time: 10/06/21 12:59 History and Physical has been reviewed, including an updated exam of the patient. There are NO changes in the patient's condition. Risks, benefits, and alternatives have been discussed and questions answered. Patient agrees to proceed with procedure. Proceed with cystoscopy, bladder biopsy with fulguration, possible TURBT
[2021-10-06] MEDS: ceFAZolin 2 GM/D5W 50 ML 2 GM/50 ML BAG IVPB (13:06)
[2021-10-06] MEDS: LIDOCAINE HCL 2% GEL UROJET 10 ML PKG MUCOUS MEM (13:30)
--- NOTE | 2021-10-06 13:35 | P.OP_ITS ---
Procedure Note - Detailed Date of Procedure 10/06/21 Pre-op Diagnosis bladder CA Post-op Diagnosis Same Procedure Performed Cystoscopy, bladder biopsy, fulguration Surgeon Ramana Dominguez MD Anesthesia General Findings Irregularity along the dome of the bladder. Description of Procedure Patient is taken the operative suite and correctly identified. Once anesthesia was obtained she was placed in dorsal lithotomy position and prepped draped usual sterile fashion. Twenty-two Croatian scope was inserted into the bladder. She has some irregularity of the mucosa along the dome area. The area in question is approximately a cm. It went ahead and used a cold cup biopsy biopsies these areas. We then used a Bugbee electrode to fulgurate the area. There was good hemostasis at termination of procedure. Bladder was drained. 2% viscous lidocaine was inserted into the urethra patient is taken recovery stable condition. She will be instructed call for the path results in 1 week time. Drains No Packing No Pathology Yes Complications No immediate complications Condition Stable Disposition PACU
[2021-10-06 13:40] VITALS: BP 132/65; PULSE 88; RESP 18; TEMP 36.5; O2SAT 97
[2021-10-06] MEDS: fentaNYL CITRATE INJ (*CRX) 100 MCG/2 ML VIAL 25 MCG IV PUSH ×2 (13:48→13:51)
[2021-10-06 13:55] VITALS: BP 142/71; PULSE 74; RESP 20; O2SAT 96
[2021-10-06 14:10] VITALS: BP 123/63; PULSE 73; RESP 16; O2SAT 93
[2021-10-06 14:25] VITALS: BP 138/63; PULSE 68; RESP 16; O2SAT 92
[2021-10-06 14:30] VITALS: BP 136/71; PULSE 67; RESP 16
[2021-10-06] MEDS: oxyCODONE HCL (*CRX) 5 MG TAB IR PO (14:47)
== END 2021-10-06 15:15 | disposition home or self-care (01) ==
PROVIDERS: PCP Internal Medicine; Visit Provider Urology
PROC: 0TBB8ZX Excision of Bladder, Via Natural or Artificial Opening Endoscopic, Diagnostic (ICD-10-PCS; CPT 52204; principal; 2021-10-06 13:00)
DX: Z08 Encounter for follow-up examination after completed treatment for malignant neoplasm (principal); D30.3 Benign neoplasm of bladder; Z85.51 Personal history of malignant neoplasm of bladder; I10 Essential (primary) hypertension; E78.5 Hyperlipidemia, unspecified; K21.9 Gastro-esophageal reflux disease without esophagitis; Z72.0 Tobacco use; F12.90 Cannabis use, unspecified, uncomplicated; E66.9 Obesity, unspecified; Z68.32 Body mass index [BMI] 32.0-32.9, adult
CPT/HCPCS: 52204; 88305; A9270; J0690; J2405; J2704; J3010; J7120

== ENCOUNTER 2021-11-17 10:30 | Outpatient (CLI) | payer OTHER, SELFPAY ==
[2021-11-17 11:12] LABS: Basophils Absolute Auto 0.1 K/mm3 (0.0-0.1); Basophils Percent Auto 0.8 % (0.2-1.2); Eosinophils Absolute Auto 0.2 K/mm3 (0-0.3); Eosinophils Percent Auto 1.8 % (0-4.4); Hematocrit 43.2 % (37.0-47.0); Hemoglobin 15.2 g/dL (12.0-15.0); Immature Granulocyte Absolute 0.03 K/mm3 (0.00-0.031); Immature Granulocyte Percent A 0.3 % (0-0.5); Lymphocytes Percent Auto 24.3 % (18.3-44.2); Mean Corpuscular HGB Conc 35.2 g/dl (32-36); Mean Corpuscular Hemoglobin 31.2 pg (26-34); Mean Corpuscular Volume 88.7 fl (80-100); Mean Platelet Volume 11.7 fl (7.4-10.4); Monocytes Absolute Auto 0.8 K/mm3 (0.1-0.6); Monocytes Percent Auto 8.4 % (2.6-8.5); Neutrophils Absolute Auto 6.1 K/mm3 (1.3-6.7); Neutrophils Percent Auto 64.4 % (45.5-73.1); Platelet Count Result 172 k/mm3 (150-375); Red Blood Count 4.87 M/mm3 (4.2-5.4); White Blood Count 9.5 K/mm3 (4.5-10.0)
[2021-11-17 11:26] LABS: Alanine Aminotransferase 19 U/L (4-35); Albumin Level 4.7 g/dL (3.5-5.1); Alkaline Phosphatase 102 U/L (38-126); Anion Gap 8 mmol/L (8-16); Aspartate Amino Transferase 38 U/L (14-36); Bilirubin,Total 0.5 mg/dL (0.2-1.3); Blood Urea Nitrogen 10 mg/dL (7-17); Calcium 9.2 mg/dL (8.4-10.2); Carbon Dioxide 29 mmol/L (22-30); Chloride 103 mmol/L (98-107); Cholesterol 152 mg/dL (0-200); Estimated Glomerular Filt Rate > 60; Glucose 101 mg/dL (65-110); HDL Direct 48 mg/dL; Potassium 4.3 mmol/L (3.4-5.0); Sodium 140 mmol/L (137-145); Triglycerides 166 mg/dL (<150)
[2021-11-17 11:30] LABS: Appearance Urine Clear (Clear); Bilirubin Urine 1+ (Negative); Blood Urine Negative (Negative); Color Urine Yellow (Yellow); Glucose Urine UA Negative (Negative); Ketones Urine Trace mg/dL (Negative); Leukocyte Esterase Ur Negative LEU/UL (NEGATIVE); Nitrate Urine Negative (Negative); Protein Urine Negative (Negative); Specific Grav Ur 1.025 (1.001-1.035); Urobilinogen Urine 0.2 mg/dL (<2.0)
[2021-11-17 11:38] LABS: LDL Cholesterol Direct 60 mg/dL
[2021-11-17 11:44] LABS: Mucus Urine Rare /lpf; Squamous Epithelial Cell Urine Few /hpf (Few)
[2021-11-17 11:48] LABS: Add Urine Microscopic? YES
[2021-11-17 12:04] LABS: Vitamin D 25 Hydroxy 38.9 ng/mL
== END 2021-11-17 10:31 | disposition home or self-care (01) ==
LOC: ANHLAB 10:34
PROVIDERS: PCP Internal Medicine; Visit Provider Internal Medicine
DX: C67.9 Malignant neoplasm of bladder, unspecified (principal); E55.9 Vitamin D deficiency, unspecified; I10 Essential (primary) hypertension; K21.9 Gastro-esophageal reflux disease without esophagitis; E78.2 Mixed hyperlipidemia
CPT/HCPCS: 36415; 80053; 80061; 81001; 82306; 84443; 85025

== ENCOUNTER 2021-12-08 10:32 | Outpatient (CLI) | payer OTHER, SELFPAY ==
--- NOTE | ~2021-12-08 | CT_ITS ---
EXAMINATION: CT lung screening DATE: 12/08/2021 11:15 INDICATION: Personal history of nicotine dependence, current smoker with 40 pack year history TECHNIQUE: Computed tomography (CT) of the chest was performed without intravenous contrast. The dose -length product (DLP) was 183.91 mGy-cm. Automated exposure control and iterative reconstruction tech Zenefits were employed. COMPARISON: 11/10/2020 FINDINGS: There is stable 2 mm nodule of the left lower lobe. Mild emphysema is noted. There are no n ew pulmonary nodules. The lungs are free of acute opacities. There is no pleural effusion or pneumoth orax. No pathologically enlarged thoracic lymph nodes are identified. The heart size is normal. Calci fied coronary artery atherosclerosis is noted. There is mild thoracic spondylosis. IMPRESSION: 1. Lung-RADS category 2: Benign appearance or behavior. Continue annual screening with noncontrast lo w-dose chest CT in 12 months. Reviewed, dictated and finalized at location A. IMPRESSION: 1. Lung-RADS category 2: Benign appearance or behavior. Continue annual screeni ng with noncontrast low-dose chest CT in 12 months.
== END 2021-12-08 10:33 | disposition home or self-care (01) ==
PROVIDERS: PCP Internal Medicine; Visit Provider Internal Medicine
DX: Z12.2 Encounter for screening for malignant neoplasm of respiratory organs (principal); Z87.891 Personal history of nicotine dependence
CPT/HCPCS: 71271

== ENCOUNTER 2023-04-20 11:20 | Outpatient (CLI) | payer OTHER, SELFPAY ==
[2023-04-20 11:56] LABS: Basophils Absolute Auto 0.1 K/mm3 (0.0-0.1); Basophils Percent Auto 0.8 % (0.2-1.2); Eosinophils Absolute Auto 0.2 K/mm3 (0-0.3); Eosinophils Percent Auto 2.1 % (0-4.4); Hematocrit 42.2 % (37.0-47.0); Hemoglobin 14.1 g/dL (12.0-15.0); Immature Granulocyte Absolute 0.02 K/mm3 (0.00-0.031); Immature Granulocyte Percent A 0.2 % (0-0.5); Lymphocytes Absolute Auto 2.06 K/mm3 (0.9-3.2); Lymphocytes Percent Auto 22.4 % (18.3-44.2); Mean Corpuscular HGB Conc 33.4 g/dl (32-36); Mean Corpuscular Hemoglobin 29.9 pg (26-34); Mean Corpuscular Volume 89.4 fl (80-100); Mean Platelet Volume 11.9 fl (7.4-10.4); Monocytes Absolute Auto 0.8 K/mm3 (0.1-0.6); Monocytes Percent Auto 8.5 % (2.6-8.5); Neutrophils Absolute Auto 6.1 K/mm3 (1.3-6.7); Platelet Count Result 168 k/mm3 (150-375); Red Blood Count 4.72 M/mm3 (4.2-5.4); White Blood Count 9.2 K/mm3 (4.5-10.0)
[2023-04-20 12:06] LABS: Alanine Aminotransferase 23 U/L (6-35); Albumin Level 4.8 g/dL (3.5-5.1); Alkaline Phosphatase 94 U/L (38-126); Aspartate Amino Transferase 41 U/L (14-36); Bilirubin,Total 0.7 mg/dL (0.2-1.3); Cholesterol 153 mg/dL (0-200); HDL Direct 47 mg/dL; Triglycerides 122 mg/dL (<150)
[2023-04-20 12:19] LABS: LDL Cholesterol Direct 77 mg/dL
[2023-04-20 13:09] LABS: Vitamin D 25 Hydroxy 46.8 ng/mL
== END 2023-04-20 11:21 | disposition home or self-care (01) ==
LOC: ANHLAB 11:22
PROVIDERS: PCP Family Medicine; Visit Provider Family Medicine
DX: E55.9 Vitamin D deficiency, unspecified (principal); E78.5 Hyperlipidemia, unspecified; Z13.220 Encounter for screening for lipoid disorders; I10 Essential (primary) hypertension
CPT/HCPCS: 36415; 80061; 80076; 82306; 84443; 85025

== ENCOUNTER 2023-05-27 10:31 | Outpatient (CLI) | payer OTHER, SELFPAY ==
--- NOTE | ~2023-05-27 | XR_ITS ---
EXAMINATION: XR shoulder RT min 2V DATE: 05/27/2023 10:46 INDICATION: Right shoulder pain. Unspecified injury of shoulder and upper arm. TECHNIQUE: 4 views of right shoulder were obtained. COMPARISON: None. FINDINGS: Bone alignment is normal. No fracture. There is mild osteoarthritis of glenohumeral joint a nd severe osteoarthritis of acromioclavicular joint. There is calcific tendinitis of the rotator cuff . IMPRESSION: 1. Polyarticular osteoarthritis. 2. Calcific tendinitis of the rotator cuff. Reviewed, dictated and finalized at location E.
== END 2023-05-27 10:32 | disposition home or self-care (01) ==
PROVIDERS: PCP Family Medicine; Visit Provider Nurse Practitioner Family
DX: M19.011 Primary osteoarthritis, right shoulder (principal); M75.31 Calcific tendinitis of right shoulder
CPT/HCPCS: 73030

== ENCOUNTER 2024-05-01 10:33 | Outpatient (CLI) | payer OTHER, SELFPAY ==
[2024-05-01 11:00] LABS: Hematocrit 45.4 % (37.0-47.0); Mean Corpuscular Hemoglobin 29.2 pg (26-34); Mean Corpuscular Volume 88.5 fl (80-100); Mean Platelet Volume 11.8 fl (7.4-10.4); Platelet Count Result 166 k/mm3 (150-375); Red Blood Count 5.13 M/mm3 (4.2-5.4); Red Cell Distribution Width 13.1 % (11.5-14.5); White Blood Count 8.3 K/mm3 (4.5-10.0)
[2024-05-01 11:10] LABS: Alanine Aminotransferase 18 U/L (6-35); Albumin Level 4.8 g/dL (3.5-5.1); Alkaline Phosphatase 109 U/L (38-126); Anion Gap 11 mmol/L (4-12); Aspartate Amino Transferase 35 U/L (14-36); Bilirubin,Total 0.5 mg/dL (0.2-1.3); Blood Urea Nitrogen 12 mg/dL (7-17); Calcium 9.2 mg/dL (8.4-10.2); Carbon Dioxide 27 mmol/L (22-30); Chloride 103 mmol/L (98-107); Cholesterol 179 mg/dL (0-200); Estimated Glomerular Filt Rate 49; Glucose 99 mg/dL (65-110); HDL Direct 66 mg/dL; Potassium 4.1 mmol/L (3.4-5.0); Sodium 141 mmol/L (137-145); Triglycerides 202 mg/dL (<150)
[2024-05-01 11:21] LABS: LDL Cholesterol Direct 76 mg/dL
[2024-05-01 11:34] LABS: Vitamin D 25 Hydroxy 17.7 ng/mL
== END 2024-05-01 10:34 | disposition home or self-care (01) ==
PROVIDERS: PCP Family Medicine; Visit Provider Nurse Practitioner Family
DX: E55.9 Vitamin D deficiency, unspecified (principal); I10 Essential (primary) hypertension; E78.5 Hyperlipidemia, unspecified; Z72.0 Tobacco use; E66.9 Obesity, unspecified
CPT/HCPCS: 36415; 80053; 80061; 82306; 84443; 85027

== ENCOUNTER 2024-07-12 12:11 | Outpatient (CLI) | payer OTHER, SELFPAY ==
[2024-07-12 12:41] LABS: Anion Gap 5 mmol/L (4-12); Blood Urea Nitrogen 20 mg/dL (7-17); Calcium 9.9 mg/dL (8.4-10.2); Carbon Dioxide 29 mmol/L (22-30); Chloride 100 mmol/L (98-107); Estimated Glomerular Filt Rate 34; Glucose 101 mg/dL (65-110); Potassium 4.6 mmol/L (3.4-5.0); Sodium 134 mmol/L (137-145)
== END 2024-07-12 12:12 | disposition home or self-care (01) ==
PROVIDERS: PCP Family Medicine; Visit Provider Nurse Practitioner Family
DX: N28.9 Disorder of kidney and ureter, unspecified (principal); E55.9 Vitamin D deficiency, unspecified
CPT/HCPCS: 36415; 80048

== ENCOUNTER 2024-08-28 13:11 | Outpatient (CLI) | payer OTHER, SELFPAY ==
--- NOTE | ~2024-08-28 | US_ITS ---
US renal BI 08/28/2024 13:41 Procedure: Realtime transabdominal ultrasound of the kidneys and bladder. Indication: Chronic kidney disease Comparison: No prior studies for comparison. Findings: Renal echotexture is normal bilaterally without hydronephrosis, contour deforming mass or r enal calculus. There are right renal cysts, largest measuring 3.7 cm. The right kidney measures 10.2 cm and left kidney measures 11 cm. Bladder within normal limits. Impression: 1: Right renal cysts, largest measuring 3.7 cm. Reviewed, dictated and finalized at location A. AKER Impression: 1: Right renal cysts, largest measuring 3.7 cm.
--- OUTSIDE RECORDS SUMMARY | 2024-08-28 13:48 | XMS_ITS | Clinical Summary ---
Author Organization [facility] [employer] Address [address] [place] [address] Care Team Providers Care Knock Out Hand Name Role Phone Bob Salmeron MD Primary Care Provider [phone] Source Comments [facility],non-owned Affiliates and Associated Physician Practices is amultiple site organization consisting of ambulatory clinics and hospital sitesin [place], [place], [place] and [place]. This disclosure is being madepursuant to the Care Everywhere program and may not contain all information available regarding this patient. Last updated 18.[facility] Social History Tobacco Use Types Packs/Day Years Used Date Smoking Tobacco: Never Assessed Sex and Gender Information Value Date Recorded Sex Assigned at Not on file Gender Identity Not on file Sexual Orientation Not on file Plan of Treatment Health Maintenance Due Date Last Done Comments BONE DENSITY TESTING 1955 COLOGUARD (AGES 45-75) - COL ON CA SCREENING 1954 COLON MONITORING 1954 COLONOSCOPY - COLON CA SCREENING 1954 CT COLONOGRAPHY - COLON CA SCREENING 1954 Colorectal Cancer Screening 1954 FIT - COLON CA SCREENING 1954 FLEX SIG - COLON CA SCREENING 1954 LIPID TESTING 1954 MAMMOGRAM 1954 HEPATITIS C SCREENING 05/05/1972 DTAP/TDAP/TD VACCINES (1 - Tdap) 1973 PNEUMOCOCCAL VACCINE 50+ (1 of 1 - PCV) 2004 ZOSTER VACCINE (1 of 2) 2004 COVID-19 VACCINE ( - 2023-2 5 season) 2024 INFLUENZA VACCINE (#1) 2024 DEPRESSION SCREENING 08/01/2024 MEDICARE AWV ? CALENDAR YEAR 2024 Respiratory Syncytial Virus (RSV) Vaccine Pt: or over 60 yrs (1 - 1-dose 75+ series) 2029 HEPATITIS B VACCINE Aged Out No longe r eligible based on patient's age to complete this topic HIB VACCINE Aged Out No longer eligi ble based on patient's age to complete this topic HPV VACCINE Aged Out No longer eligi ble based on patient's age to complete this topic MENINGOCOCCAL (Group B) VACCINE Aged Out No longer eligible based on patient's age to complete this topic MENINGOCOCCAL VACCINE Aged Out No tegan spike eligible based on patient's age to complete this topic Care Teams Knock Out Hand Relationship Specialty Start Date End Date Bob Salmeron MD [address] [place] [address] PCP - General 10/08/21
--- OUTSIDE RECORDS SUMMARY | 2024-08-28 13:48 | XMS_ITS | Clinical Summary ---
Author Organization [facility] Address [address] [place] [address]. [place], [place] [address] [place] [address] Care Team Providers Care Cold Mill Operator Name Role Phone Unavailable Primary Care Provider Unavailabl e Social History Tobacco Use Types Packs/Day Years Used Date Smoking Tobacco: Never Assessed Comments Unknown Sex and Gender Information Value Date Recorded Sex Assigned at Not on file Legal Sex Female 7:37 PM CDT Gender Identity Not on file Sexual Orientation Not on file Plan of Treatment Health Maintenance Due Date Last Done Comments Colorectal Cancer Screening Colonoscopy (10 Years) 1954 Hepatitis C 1972 DTaP, Tdap and Td Vaccines ( 1 - Tdap) 1973 Mammogram Screening 1994 Zoster Vaccines (1 of 2) 2004 Dexa Scan (General) 2019 Pneumococcal Vaccine: 65+ Ye ars (1 of 1 - PCV) 2019 COVID-19 Vaccine (2023-2 5 season) 2024 Influenza Adult (#1) 2024 RSV Immunization or 60+ Years (1 - 1-dose 75+ series) 2029 Meningococcal B Vaccine Aged Out No l onger eligible based on patient's age to complete this topic Meningococcal Vaccine Aged Out No tegan spike eligible based on patient's age to complete this topic RSV Immunizations Under 20 Months Aged Out No longer eligible based on patient's age to complete this topic
--- OUTSIDE RECORDS SUMMARY | 2024-08-28 13:48 | XMS_ITS | Referral Summary ---
Author Organization [facility] [employer] [facility] Address [address] [place] [address] Care Team Providers Care Lead Javascript Engineer Name Role Phone Bob Salmeron MD Primary Care Provider [phone] Source Comments [facility],non-owned Affiliates and Associated Physician Practices is amultiple site organization consisting of ambulatory clinics and hospital sitesin [place], [place], [place] and [place]. This disclosure is being madepursuant to the Care Everywhere program and may not contain all information available regarding this patient. Last updated 18.[facility] [employer] [facility] [facility] Social History Tobacco Use Types Packs/Day Years Used Date Smoking Tobacco: Never Assessed Sex and Gender Information Value Date Recorded Sex Assigned at Not on file Gender Identity Not on file Sexual Orientation Not on file Plan of Treatment Not on file Care Teams Lead Javascript Engineer Relationship Specialty Start Date End Date Bob Salmeron MD [address] [place] [address] PCP - General 10/08/21
--- OUTSIDE RECORDS SUMMARY | 2024-08-28 13:48 | XMS_ITS | Patient Health Summary ---
Author Organization [facility] Address [address] [place] [address] Care Team Providers Care Broadcast Traffic Coordinator Name Role Phone Bob Salmeron MD Primary Care Provider [phone] Note from [facility],non-owned Affiliates and Associated Physician Practices is amultiple site organization consisting of ambulatory clinics and hospital sitesin [place], [place], [place] and [place]. This disclosure is being madepursuant to the Care Everywhere program and may not contain all information available regarding this patient. Last updated 18.[facility] Social History Tobacco Use Types Packs/Day Years Used Date Smoking Tobacco: Never Assessed Sex and Gender Information Value Date Recorded Sex Assigned at Not on file Gender Identity Not on file Sexual Orientation Not on file Procedures * FROZEN SECTION(Performed 12/22/2007) Results * FROZEN SECTION (12/22/2007 3:30 PM CDT) Result CASE NUMBER [id number] Comment: ORDERING PHYSICIAN ??YAHIR ARELLANO SPECIMEN TYPE ?Brain Biopsy-epideral mass Date ? 12/22/2007 Physician ?Elina Arellano Gross Description ? The specimen is received in saline labeled with the patient's name, Soumya Vasquez, and epidural mass, fresh. ??It consists of several fluffy white and pink fragments of tissue measuring 1.6 x 1.2 x 0.4 cm in aggregate. ??The specimen is submitted entirely for frozen section analysis in cassette FSA. DC guevara Microscopic Exam ? Sections show cartilage and fibroconnective tissue with degenerative changes. ??No evidence of malignancy is seen. ??An immunostain with S100 is negative, ruling out schwannoma. MC/na Diagnosis ? FROZEN SECTION DIAGNOSIS I. ?Epidural mass for frozen ?Section FSA -- ?Fibroconnective tissue, inflammatory ?process?() FINAL DIAGNOSIS I. ?Epidural mass, resection -- ?Cartilage and fibroconnective ?tissue with degenerative changes -- ?No evidence of malignancy MC/na Loop Tacker ? na Pathologist ?Flores Acosta M.D. Snomed. ?12/28/2007 1014 <2> CPT code ? 91382, 38573, 37792 MISCELLANEOUS SAMPLES / Unknown 12/22/2007 3:30 PM CDT 12/22/2007 3:58 PM CDT Historical Provider LAB - PATHOLOGY/C YTOLOGY ORDERABLES Care Teams Broadcast Traffic Coordinator Relationship Specialty Start Date End Date Bob Salmeron MD [address] [place] [address] PCP - General 10/08/21
== END 2024-08-28 13:12 | disposition home or self-care (01) ==
PROVIDERS: PCP Family Medicine; Visit Provider Nurse Practitioner Family
DX: N28.1 Cyst of kidney, acquired (principal); N18.9 Chronic kidney disease, unspecified
CPT/HCPCS: 76775

== ENCOUNTER 2024-09-25 12:58 | Outpatient (CLI) | payer OTHER, SELFPAY ==
[2024-09-25 13:40] LABS: Hematocrit 40.6 % (37.0-47.0); Hemoglobin 13.9 g/dL (12.0-15.0); Mean Corpuscular HGB Conc 34.2 g/dl (32-36); Mean Corpuscular Hemoglobin 30.1 pg (26-34); Mean Corpuscular Volume 87.9 fl (80-100); Mean Platelet Volume 11.6 fl (7.4-10.4); Platelet Count Result 206 k/mm3 (150-375); Red Blood Count 4.62 M/mm3 (4.2-5.4); Red Cell Distribution Width 12.5 % (11.5-14.5); White Blood Count 11.3 K/mm3 (4.5-10.0)
[2024-09-25 13:50] LABS: Add Urine Microscopic? YES; Appearance Urine Cloudy (Clear); Bacteria Urine None Seen /hpf; Bilirubin Urine Negative (Negative); Blood Urine Negative (Negative); Color Urine Yellow (Yellow); Glucose Urine UA Negative (Negative); Ketones Urine Negative (Negative); Leukocyte Esterase Ur Negative LEU/UL (Negative); Nitrate Urine Negative (Negative); Protein Urine Trace mg/dL (Negative); Specific Grav Ur 1.019 (1.001-1.035); Squamous Epithelial Cell Urine Moderate /hpf (Few); WBC Urine 0-5 /hpf (0-3); pH Urine 5.5 (5.0-9.0)
[2024-09-25 13:57] LABS: Anion Gap 14 mmol/L (4-12); Blood Urea Nitrogen 28 mg/dL (7-17); Calcium 9.7 mg/dL (8.4-10.2); Carbon Dioxide 27 mmol/L (22-30); Chloride 96 mmol/L (98-107); Creatine Kinase 213 U/L (30-135); Estimated Glomerular Filt Rate 35; Glucose 101 mg/dL (65-110); Phosphorus 3.7 mg/dL (2.5-4.5); Potassium 4.2 mmol/L (3.4-5.0); Sodium 137 mmol/L (137-145)
[2024-09-25 13:59] LABS: Total Protein Urine Random 8 mg/dL; Ur Ttl Prot Creatinine Ratio 0.03 mg/mg (0-0.20)
[2024-09-25 14:05] LABS: Complement C3 154 mg/dL (88-165)
[2024-09-25 14:08] LABS: Parathyroid Intact 47.2 pg/mL (14.5-75.2)
--- OUTSIDE RECORDS SUMMARY | 2024-09-25 14:44 | XMS_ITS | Patient Health Summary ---
Author Organization [facility] [employer] Address [address] [place] [address] Care Team Providers Care Building Energy Retrofit Technician Name Role Phone Bob Salmeron MD Primary Care Provider [phone] Note from [facility] [employer],non-owned Affiliates and Associated Physician Practices is amultiple site organization consisting of ambulatory clinics and hospital sitesin [place], [place], [place] and [place]. This disclosure is being madepursuant to the Care Everywhere program and may not contain all information available regarding this patient. Last updated 18.[facility] [employer] Social History Tobacco Use Types Packs/Day Years Used Date Smoking Tobacco: Never Assessed Sex and Gender Information Value Date Recorded Sex Assigned at Not on file Gender Identity Not on file Sexual Orientation Not on file Procedures * FROZEN SECTION(Performed 12/22/2007) Results * FROZEN SECTION (12/22/2007 3:30 PM CDT) Result CASE NUMBER [id number] Comment: ORDERING PHYSICIAN YAHIR ARELLANO SPECIMEN TYPE Brain Biopsy-epideral mass Date 12/22/2007 Physician Elina Arellano Gross Description The specimen is received in saline labeled with the patient's name, Soumya Vasquez, and epidural mass, fresh. It consists of several fluffy white and pink fragments of tissue measuring 1.6 x 1.2 x 0.4 cm in aggregate. The specimen is submitted entirely for frozen section analysis in cassette FSA. DC guevara Microscopic Exam Sections show cartilage and fibroconnective tissue with degenerative changes. No evidence of malignancy is seen. An immunostain with S100 is negative, ruling out schwannoma. MC/na Diagnosis FROZEN SECTION DIAGNOSIS I. Epidural mass for frozen Section FSA -- Fibroconnective tissue, inflammatory process? (MC) FINAL DIAGNOSIS I. Epidural mass, resection -- Cartilage and fibroconnective tissue with degenerative changes -- No evidence of malignancy MC/na Manager Generation na Pathologist Flores Acosta M.D. Snomed. 12/28/2007 1014 <2> CPT code 88313, 93805, 90805 MISCELLANEOUS SAMPLES / Unknown 12/22/2007 3:30 PM CDT 12/22/2007 3:58 PM CDT Historical Provider MD LAB - PATHOLOGY/C YTOLOGY ORDERABLES Care Teams Building Energy Retrofit Technician Relationship Specialty Start Date End Date Bob Salmeron MD [address] [place] [address] PCP - General 10/08/21
--- OUTSIDE RECORDS SUMMARY | 2024-09-25 14:44 | XMS_ITS | Clinical Summary ---
Author Organization [facility] [employer] Address [address] [place] [address] Care Team Providers Care Estimator Paperboard Boxes Name Role Phone Bob Salmeron MD Primary Care Provider [phone] Source Comments [facility] [employer],non-owned Affiliates and Associated Physician Practices is amultiple site organization consisting of ambulatory clinics and hospital sitesin [place], [place], [place] and [place]. This disclosure is being madepursuant to the Care Everywhere program and may not contain all information available regarding this patient. Last updated 18.[facility] [employer] Social History Tobacco Use Types Packs/Day Years [...] (#1) 2024 DEPRESSION SCREENING 08/01/2024 MEDICARE AWV CALENDAR YEAR 2024 Respiratory Syncytial Virus (RSV) [...] age to complete this topic Care Teams Estimator Paperboard Boxes Relationship Specialty Start Date End Date Bob Salmeron MD [address] [place] [address] PCP - General 10/08/21
--- OUTSIDE RECORDS SUMMARY | 2024-09-25 14:44 | XMS_ITS | Clinical Summary ---
Author Organization [facility] Address [address] [facility] [place] [address] Care Team Providers Care Siphon Operator Name Role Phone Unavailable Primary Care [...]
--- OUTSIDE RECORDS SUMMARY | 2024-09-25 14:44 | XMS_ITS | Referral Summary ---
Author Organization [facility] [employer] Address [address] [place] [address] Care Team Providers Care Cattle Dehorner Name Role Phone Bob Salmeron MD Primary Care Provider [phone] Source Comments [facility], [facility],non-owned Affiliates and Associated Physician Practices is amultiple site organization consisting of ambulatory clinics and hospital sitesin [place], [place], [place] and [place]. This disclosure is being madepursuant to the Care Everywhere program and may not contain all information available regarding this patient. Last updated 18.[facility] [employer] Social History Tobacco Use Types Packs/Day Years Used Date Smoking Tobacco: Never Assessed Sex and Gender Information Value Date Recorded Sex Assigned at Not on file Gender Identity Not on file Sexual Orientation Not on file Plan of Treatment Not on file Care Teams Cattle Dehorner Relationship Specialty Start Date End Date Bob Salmeron MD [address] [place] [address] PCP - General 10/08/21
[2024-09-25 15:02] LABS: Erythrocyte Sedimentation Rate 24 mm/hr (0-20)
[2024-09-26 16:04] LABS: Complement Total CH50 56 U/mL (31-60)
[2024-09-27 16:14] LABS: Kappa\\Lambda Light Chains 1.81 (0.26-1.65); Lambda Light Chain 11.2 mg/L (5.7-26.3)
== END 2024-09-25 12:59 | disposition home or self-care (01) ==
PROVIDERS: PCP Family Medicine; Visit Provider Internal Medicine Nephrology
DX: R94.4 Abnormal results of kidney function studies (principal); I10 Essential (primary) hypertension
CPT/HCPCS: 36415; 80069; 81001; 82550; 82570; 83883; 83970; 84156; 85027; 85652; 86038; 86039; 86160; 86162; 86334

== ENCOUNTER 2024-11-30 07:21 | Outpatient (CLI) | payer OTHER, SELFPAY ==
[2024-11-13 15:40] VITALS: BMI 35.2
--- NOTE | 2024-11-13 15:41 | PC.NURSE ---
Pre Radiology instructions Report to the outpatient sameer dos santos on date ___11/30/24__ at time ___7:30AM____ for procedure Time: _9:30AM___ YOU MAY BE MONITORED AT HOSPITAL FOR UP TO 4 HOURS AFTER YOUR PROCEDURE. A visitor will be allowed to accompany the patient into the hospital. You and your visitor will be asked to self-screen and do not enter if you have any COVID symptoms. A mask is OPTIONAL within the hospital. Patients are to have no food or drink 6 hours prior to procedure time Driving will be restricted after the procedure, you must have a person to drive you home. Labs will be drawn in preop area and once reviewed, you will be taken to radiology area for procedure. When the procedure is completed, you will be taken to outpatient where you will be monitored for several hours. You may have one visitor in this area. Other than holding anti-coagulants, patient may take other medication(s) as scheduled. Prior to your appointment date patients are instructed to hold anti-coagulants after discussing with ordering provider to stop. If unable to discontinue anti-coagulants please notify radiologist. ? No aspirin or warfarin (Coumadin) for 7 days prior to the procedure. ? No clopidogrel (Plavix), ticagrelor (Brilinta), prasugrel (Effient) or dabigatran (Pradaxa) for 5 days prior to the procedure. ? No rivaroxaban (Xarelto), apixaban (Eliquis), dipyridamole (Aggrenox or Persantine) or cilostazol (Pletal) for 2 days prior to the procedure. Medications to discontinue per physician: __NONE Date to take last dose: Please leave all valuables, including medications, at home the day of procedure. The hospital will not accept responsibility for valuables. Wear comfortable, loose fitting clothing.? Follow any additional instructions given to you from ordering provider. Telephone instructions given to ___PATIENT and asked if any additional questions and then verbalized understanding. Patient advised to call scheduling provider office or registration scheduling [phone] if any additional questions.
[2024-11-30] VITALS (12 sets, daily range): BP systolic 119–154; BP diastolic 64–88; PULSE 60–82; RESP 14–18; TEMP 36.8; O2SAT 96–100
--- NOTE | ~2024-11-30 | US_ITS ---
EXAMINATION: US biopsy renal DATE: 11/30/2024 10:18 INDICATION: Hematuria. Chronic kidney disease. TECHNIQUE: The procedure including the risks, benefits, and alternatives was discussed with the patie nt. Risks discussed included bleeding and infection. The patient understood the risks and agreed to p roceed. A timeout was performed to verify the patient's name, date of , and procedure to be p erformed. The skin overlying the left kidney was prepped and draped in usual sterile fashion. Anest hetic was administered with 1% lidocaine subcutaneously. An 18 gauge core biopsy needle was then use d to obtain 3 core biopsy specimens under continuous sonographic guidance. Preliminary review by the pathologist deemed the specimen adequate. The entry site was cleaned and dressed. There were no imme diate complications. FINDINGS: Ultrasound images demonstrate the needle in the left kidney. IMPRESSION: 1. Ultrasound-guided random left kidney core needle biopsy. Reviewed, dictated and finalized at location A.
--- OUTSIDE RECORDS SUMMARY | 2024-11-30 07:25 | XMS_ITS | Clinical Summary ---
Author Organization [facility] Address [address] [place] [address] Care Team Providers Care Compounder Sterile Products Name Role Phone Bob Salmeron MD Primary Care Provider [phone] Source Comments [facility],non-owned Affiliates and Associated Physician Practices is amultiple site organization consisting of ambulatory clinics and hospital sitesin [place], [place], [place] and [place]. This disclosure is being madepursuant to the Care Everywhere program and may not contain all information available regarding this patient. Last updated 18.[facility] Social History Tobacco Use Types Packs/Day Years Used Date Smoking Tobacco: Never Assessed Comments Unknown Sex and Gender Information Value Date Recorded Sex Assigned at Not on file Legal Sex Female 6:40 AM INSPECTOR RECEIVING Gender Identity Not on file Sexual Orientation [...] VACCINE ( - 2023-2 5 season) 2024 DEPRESSION SCREENING 08/01/2024 INFLUENZA VACCINE (Season Ended) 2025 Respiratory Syncytial Virus (RSV) Vaccine Pt: or [...] to complete this topic MENINGOCOCCAL (Group B) VACC INE SHARED DECISION-MAKING Aged Out No longer eligibl e based on patient's age to complete this topic MENINGOCOCCAL GROUPS A/C/Y/W VACCINE Aged Out No longer eligible b ased on patient's age to complete this topic Insurance [employer] Care Teams Compounder Sterile Products Relationship Specialty Start Date End Date Bob Salmeron MD [address] [place] [address] PCP - General 10/08/21
--- OUTSIDE RECORDS SUMMARY | 2024-11-30 07:25 | XMS_ITS | Clinical Summary ---
Author Organization [facility] Address [facility] [place] [address] Care Team Providers Care Missile Pad Mechanic Name Role Phone Unavailable Primary Care Provider [...] 1 - Tdap) 1973 Mammogram Screening 1994 Pneumococcal Vaccine: 50+ Ye ars (1 of 1 - PCV) 2004 Zoster Vaccines (1 of 2) 2004 Dexa Scan (General) 2019 COVID-19 Vaccine (2023-2 5 season) 2024 RSV Immunization or 60+ Years (1 [...]
[2024-11-30 07:59] LABS: Mean Platelet Volume 11.3 fl (7.4-10.4); Platelet Count Result 210 k/mm3 (150-375)
[2024-11-30 08:13] LABS: INR 0.9; Prothrombin Time 12.3 Seconds (11.1-14.7)
== END 2024-11-30 14:00 | disposition home or self-care (01) ==
PROVIDERS: PCP Family Medicine; Referring Provider Internal Medicine Nephrology; Visit Provider Radiology Diagnostic Radiology
PROC: (CPT 76942; principal; 2024-11-30 09:30)
DX: R31.9 Hematuria, unspecified (principal); R94.4 Abnormal results of kidney function studies; D89.2 Hypergammaglobulinemia, unspecified; I10 Essential (primary) hypertension
CPT/HCPCS: 36415; 50200; 76942; 85049; 85610; 88300; 88329

== ENCOUNTER 2024-12-20 15:28 | Outpatient (CLI) | payer OTHER, SELFPAY ==
--- OUTSIDE RECORDS SUMMARY | 2024-12-20 15:32 | XMS_ITS | Encounter Summary ---
Author Organization [facility] [employer] [facility] Address [address] [place] [address] Care Team Providers Care Stoker Mechanic Name Role Phone Kamari Cortez MD Primary Care Provider [phone] Reason for Referral * Radiology Services (Routine) - Authorized Specialty Diagnoses / Procedures Referred By Contac t Referred To Contact Diagnoses Plasma cell disorder Procedures XR BONE SURVEY COMPLETE Devante Otero MD [address] [place] [address] Phone: tel: fax: Referral ID Status Reason Start Date Expiration Date V isits Requested Visits Authorized [id number] Authorized 12/20/2024 01/20/2026 1 1 Reason for Visit * Reason Comments Establish Care Encounter Details Date Type Department Care Team (Late st Contact Info) Description 12/20/2024 2:30 PM CDT Office Visit [facility] Oncology and Hematology - [place] [address] [place] [address] [address] Devante Otero MD [address] [place] [address] Plasma cell disorder (Primary Dx) Social History Tobacco Use Types Packs/Day Years Used Date Smoking Tobacco: Every Day Cigarettes 0.9 35.5 Started: 07/01/1989 Smokeless Tobacco: Never Tobacco Cessation:Ready to Q uit: Not Asked; Counseling Given: Not Answered Alcohol Use Standard Drinks/Week Comments Yes 0 (1 standard drink = 0.6 oz pur e alcohol) Socially Comments Unknown Sex and Gender Information Value Date Recorded Sex Assigned at Not on file Legal Sex Female 3:00 PM CDT Gender Identity Not on file Sexual Orientation Not on file documented as of this encounter Last Filed Vital Signs Vital Sign Reading Time Taken Comments Blood Pressure 92/55 12/20/2024 2:34 PM CDT Pulse 88 12/20/2024 2:29 PM CDT Temperature 36.7 C (98.1 F) 12/20/2024 2:29 PM CDT Respiratory Rate 16 12/20/2024 2:29 PM CDT Oxygen Saturation 92% 12/20/2024 2:29 PM CDT Inhaled Oxygen Concentration - - Weight 100.2 kg (220 lb 12.8 oz) 12/20/2024 2:29 PM CDT Height 170.2 cm (5' 7 ) 12/20/2024 2:29 PM CDT Body Mass Index 34.58 12/20/2024 2:29 PM CDT documented in this encounter Plan of Treatment Upcoming Encounters Date Type Department Care Team (Late st Contact Info) Description 01/03/2025 4:30 PM CDT Telephone Check Up [facility] Oncology and Hematology - [place] [address] [facility] [address] [place] [address] Devante Otero MD [address] [facility] [address] [place] [address] Scheduled Orders Name Type Priority Associated Diagnoses Orde r Schedule CBC WITH DIFFERENTIAL Lab Stat Plasma cell disorder Expected: 12/20/2024, Expires: 12/20/2025 COMPREHENSIVE METABOLIC PANEL Lab Stat Plasma cell disorder Expected: 12/20/2024, Expires: 12/20/2025 IMMUNOGLOBULINS IGG IGA IGM Lab Routine Plasma cell disorder Expected: 12/20/2024, Expires: 12/20/2025 KAPPA/LAMBDA, FREE LIGHT CHAINS Lab Routine Plasma cell disorder Expected: 12/20/2024, Expires: 12/20/2025 PROTEIN ELECTROPHORESIS W/REFLEX,SERUM Lab Routine Plasma cell disorder Expected: 12/20/2024, Expires: 12/20/2025 XR BONE SURVEY COMPLETE Imaging Routine Plasma cell disorder 1 Occurrences starting 12/20/2024 until 12/20/2025 documented as of this encounter Visit Diagnoses Diagnosis Plasma cell disorder- Primary Other specified disease of white blood cells documented in this encounter Care Teams Stoker Mechanic Relationship Specialty Start Date End Date Kamari Cortez MD [address] [place] [address] PCP - General Family Practice 12/20/24 documented as of this encounter
--- OUTSIDE RECORDS SUMMARY | 2024-12-20 15:32 | XMS_ITS | Clinical Summary ---
Author Organization [facility] [employer] Address [address] [place] [address] Care Team Providers Care Oim Consultant Name Role Phone Kamari Cortez MD Primary Care Provider [phone] Allergies Active Allergy Reactions Criticality Noted Date Comments Sulfa (Sulfonamide Antibiotics) Nausea and Vomiting Low 12/20/2024 Medications amLODIPine (NORVASC) 10 mg tablet Take 10 mg by mouth daily. 12/19/2024 Active lisinopriL (PRINIVIL) 40 mg tablet Take 40 mg by mouth daily in the morning. 09/27/2024 Active metoprolol succinate (TOPROL XL) 50 mg Extended Release 24 hour tablet Take 50 mg by mouth daily in the morning. 09/26/2024 Active rosuvastatin (CRESTOR) 20 mg tablet Take 20 mg by mouth daily in the morning. 09/27/2024 Active torsemide (DEMADEX) 5 mg tablet Take 5 mg by mouth daily in the morning. 12/12/2024 Active traMADol (ULTRAM) 50 mg tablet Take 50 mg by mouth every 6 hours as needed for Pain. 12/17/2024 Active omeprazole (PriLOSEC) 20 mg Capsule, Delayed Release(E.C.) Take 20 mg by mouth daily. Active Active Problems No known active problems Encounters Date Type Department Care Team Description 12/20/2024 2:30 PM CDT Office Visit [facility] Oncology and Hematology - [place] [address] [place] [address] Devante Otero MD Plasma cell disorder (Primary Dx) from Last 3 Months Family History Medical History Relation Name Comments No Known Problems Brother Heart Disease Father Diabetes Mother Heart Disease Sister 1 No Known Problems Sister 2 Relation Name Status Comments Brother Alive Father Mother Sister 1 Sister 2 Alive Social History Tobacco Use Types Packs/Day Years [...] on file Sexual Orientation Not on file Last Filed Vital Signs Vital Sign Reading [...] Mass Index 34.58 12/20/2024 2:29 PM CDT Plan of Treatment Upcoming Encounters Date Type Department Care Team (Late st Contact Info) Description 01/03/2025 4:30 PM CDT Telephone Check Up [facility] Oncology and Hematology - [place] [address] [facility] [address] [place] [address] Devante Otero MD [address] [facility] [address] [place] [address] Health Maintenance Due Date Last Done Comments DTAP/TDAP/TD VACCINES (1 - Tdap) 1973 BREAST CANCER SCREENING 1994 COLORECTAL SCREENING 1999 Colorectal Cancer Screening 1999 FIT-DNA Q 3 years 1999 FIT/FOBT Q 1 year 1999 Flex Sig/CT Colonography Q 5 years 1999 PNEUMOCOCCAL VACCINE 50+ YEARS (1 of 1 - PCV) 05/10/20 04 ZOSTER VACCINE (1 of 2) 2004 OSTEOPOROSIS SCREENING 2019 INFLUENZA VACCINE (#1) 2024 [place]) Prev entative Visit/Annual Wellness Visit 08/01/2024 RSV VACCINE (60+ or ) (1 - 1-dose 75+ series) 2029 Insurance [facility] [place] Address: [place] [address] Care Teams Oim Consultant Relationship Specialty Start Date End Date Kamari Cortez MD [address] [place] [address] PCP - General Family Practice 12/20/24
--- OUTSIDE RECORDS SUMMARY | 2024-12-20 15:32 | XMS_ITS | Clinical Summary ---
Author Organization [facility] Address [address] [place] [address] Care Team Providers Care House Shorer Name Role Phone Bob Salmeron MD Primary Care Provider [phone] Source Comments [facility],non-owned Affiliates and Associated Physician Practices is amultiple site organization consisting of ambulatory clinics and hospital sitesin [place], [place], [place] and [place]. This disclosure is being madepursuant to the Care Everywhere program and may not contain all information available regarding this patient. 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 MEDICARE SELF PAY NO INSURANCE Member Subscriber Plan / Payer (Ef fective for All Dates) Name:RadhaPrabhakar Member ID:Not on file Relation to Subscriber:Not on file Name:RADHAPRABHAKAR Subscriber ID:Not on file (Home) Address: [address] [place] [id number] Payer ID:Not on file Group ID:Not on file Type:Self Pay Address: [place], [place] Care Teams House Shorer Relationship Specialty Start Date End Date Bob Salmeron MD [address] [place] [address] PCP - General 10/08/21
[2024-12-20 15:48] LABS: Basophils Absolute Auto 0.1 K/mm3 (0.0-0.1); Basophils Percent Auto 0.8 % (0.2-1.2); Eosinophils Absolute Auto 0.1 K/mm3 (0-0.3); Eosinophils Percent Auto 0.5 % (0-4.4); Hematocrit 40.5 % (37.0-47.0); Hemoglobin 14.1 g/dL (12.0-15.0); Immature Granulocyte Absolute 0.03 K/mm3 (0.00-0.031); Immature Granulocyte Percent A 0.3 % (0-0.5); Lymphocytes Absolute Auto 1.76 K/mm3 (0.9-3.2); Lymphocytes Percent Auto 14.9 % (18.3-44.2); Mean Corpuscular HGB Conc 34.8 g/dl (32-36); Mean Corpuscular Hemoglobin 29.2 pg (26-34); Mean Corpuscular Volume 83.9 fl (80-100); Mean Platelet Volume 11.5 fl (7.4-10.4); Monocytes Absolute Auto 1.1 K/mm3 (0.1-0.6); Neutrophils Absolute Auto 8.8 K/mm3 (1.3-6.7); Neutrophils Percent Auto 74.5 % (45.5-73.1); Platelet Count Result 243 k/mm3 (150-375); Red Blood Count 4.83 M/mm3 (4.2-5.4); Red Cell Distribution Width 12.1 % (11.5-14.5); White Blood Count 11.8 K/mm3 (4.5-10.0)
[2024-12-20 16:41] LABS: Alanine Aminotransferase 24 U/L (6-35); Albumin Level 4.8 g/dL (3.5-5.1); Alkaline Phosphatase 116 U/L (38-126); Anion Gap 11 mmol/L (4-12); Aspartate Amino Transferase 54 U/L (14-36); Bilirubin,Total 0.6 mg/dL (0.2-1.3); Blood Urea Nitrogen 37 mg/dL (7-17); Calcium 9.5 mg/dL (8.4-10.2); Carbon Dioxide 28 mmol/L (22-30); Chloride 91 mmol/L (98-107); Estimated Glomerular Filt Rate 18; Glucose 112 mg/dL (65-110); Potassium 4.5 mmol/L (3.4-5.0); Sodium 130 mmol/L (137-145)
[2024-12-20 16:49] LABS: Immunoglobulin A 150 mg/dL (70-400); Immunoglobulin G 1038 mg/dL (700-1600); Immunoglobulin M 117 mg/dL (40-230)
[2024-12-21 20:33] LABS: Protein, Total 7.5 g/dL (6.1-8.1)
[2024-12-25 14:23] LABS: Kappa\\Lambda Light Chains 2.15 (0.26-1.65); Lambda Light Chain 11.7 mg/L (5.7-26.3)
[2024-12-25 20:03] LABS: Albumin 4.2 g/dL (3.8-4.8); Alpha 1 Globulin 0.4 g/dL (0.2-0.3); Beta 1 Globulin 0.6 g/dL (0.4-0.6); Gamma Globulin 0.9 g/dL (0.8-1.7)
== END 2024-12-20 15:29 | disposition home or self-care (01) ==
LOC: ANHLAB 15:29
PROVIDERS: PCP Family Medicine; Visit Provider Internal Medicine Hematology & Oncology
DX: D72.9 Disorder of white blood cells, unspecified (principal)
CPT/HCPCS: 36415; 80053; 82784; 83883; 84155; 84165; 85025

== ENCOUNTER 2024-12-20 16:00 | Outpatient (CLI) | payer OTHER, SELFPAY ==
--- NOTE | ~2024-12-20 | XR_ITS ---
COMPLETE BONE SURVEY Ordering provider: Devante Otero MD History: 69 years Female with . Plasma cell disorder . Comparison: None FINDINGS: Standard bone survey for multiple myeloma was performed with images of the spine, lower and upper extremities as well as the chest and skull. BONES: No bony lytic or sclerotic lesions of the imaged osseous structures are identified. JOINT SPACES: Moderate osteoarthritic changes of the right knee. Mild osteoarthritic changes of the l eft knee. SOFT TISSUES: Normal. Aortic and vascular calcifications are noted. Degenerative disc disease seen at the level of C4-C5 and C5-C6 and C6-C7. Multilevel uncovertebral octavio int osteoarthritic changes. Multilevel facet joint disease. Degenerative changes of the thoracic spine are noted. Mild S-shaped scoliosis in the thoracolumbar ar ea. Multilevel narrowing of the disc spaces in the thoracic area. Multilevel degenerative disc disease in the lumbar area. IMPRESSION: 1. No radiographic findings of multiple myeloma. 2. Chronic findings as discussed above. Reviewed, dictated and finalized at location A.
--- OUTSIDE RECORDS SUMMARY | 2024-12-20 16:05 | XMS_ITS | Encounter Summary ---
Author Organization [facility] [employer] [facility] Address [address] [place] [address] Care Team Providers Care Studio Operations Engineer In Charge Name Role Phone Kamari Cortez MD Primary Care Provider Reason for Referral * Radiology Services (Routine) - Authorized Specialty Diagnoses / Procedures Referred By Contmelissa t Referred To Contact Diagnoses Plasma cell disorder Procedures XR BONE SURVEY COMPLETE Devante Otero MD [address] [place] [address] Phone: tel: fax: [place] [address] Referral ID Status Reason Start Date Expiration Date V isits Requested Visits Authorized [id number] Authorized [facility] CTS 12/20/2024 01/20/2026 1 1 Reason for Visit * Reason Comments Establish Care Encounter Details Date Type Department Care Team (Late st Contact Info) Description 12/20/2024 2:30 PM CDT Office Visit [facility] Oncology and Hematology [facility] [address] [place], [place] [address] [facility] [address] [place] [address] Devante Otero MD [address] [place] [address] Plasma cell disorder (Primary Dx) [...] 01/03/2025 4:30 PM CDT Telephone Check Up [facility] Oncology and Hematology - [place] [address] [facility] [address] [place] [address] Devante Otero MD [address] [facility] [address] [place] [address] Scheduled Orders Name Type Priority [...] cells documented in this encounter Care Teams Studio Operations Engineer In Charge Relationship Specialty Start Date End Date Kamari Cortez MD [address] [place] [address] PCP - General Family Practice 12/20/24 documented as of this encounter
--- OUTSIDE RECORDS SUMMARY | 2024-12-20 16:05 | XMS_ITS | Clinical Summary ---
Author Organization [facility] [employer] Address [address] [facility] [place] [address] Care Team Providers Care Pulp Screen Operator Name Role Phone Bob Salmeron MD Primary Care Provider [phone] Source Comments [facility] [employer],non-owned Affiliates and Associated Physician Practices is amultiple site organization consisting of ambulatory clinics and hospital sitesin [place], [place], [place] and [place]. This disclosure is being madepursuant to the Care Everywhere program and may not contain all information available regarding this patient. Last updated 18.[facility] [employer] Social History Tobacco Use Types Packs/Day Years Used Date Smoking Tobacco: Never Assessed Comments Unknown Sex and Gender Information Value Date Recorded Sex Assigned at Not on file Legal Sex Female 6:40 AM INBOUND CALL CENTER REPRESENTATIVE Gender Identity Not on file Sexual Orientation [...] patient's age to complete this topic Insurance [facility] MEDICARE SELF PAY NO INSURANCE Member Subscriber Plan / Payer (Ef fective for All Dates) Name:RadhaPrabhakar Member ID:Not on file Relation to Subscriber:Not on file Name:RADHAPRABHAKAR Subscriber ID:Not on file (Home) Address: [address] [place] [id number] Payer ID:Not on file Group ID:Not on file Type:Self Pay Address: [place], [place] Care Teams Pulp Screen Operator Relationship Specialty Start Date End Date Bob Salmeron MD [address] [place] [address] PCP - General 10/08/21
--- OUTSIDE RECORDS SUMMARY | 2024-12-20 16:05 | XMS_ITS | Clinical Summary ---
Author Organization [facility] [employer] Address [address] [place] [address] Care Team Providers Care Director Museum Or Zoo Name Role Phone Kamari Cortez MD Primary Care Provider [phone] Allergies Active Allergy Reactions Criticality Noted Date [...] Description 12/20/2024 2:30 PM CDT Office Visit [facility] Oncology and Hematology [facility] [address] [place] [address] Devante Otero MD Plasma cell disorder (Primary Dx) 12/20/2024 Abstract [facility] Oncology and Hematology [facility] [address] [place] [address] Devante Otero MD from Last 3 Months Family History Medical [...] 01/03/2025 4:30 PM CDT Telephone Check Up [facility] Oncology and Hematology - [place] [address] [place] [address] Devante Otero MD [address] [facility] [address] [place] [address] Health Maintenance Due Date Last [...] 2019 INFLUENZA VACCINE (#1) 2024 [place] ([place]) Prev entative Visit/Annual Wellness Visit 08/01/2024 RSV VACCINE (60+ or ) (1 - 1-dose 75+ series) 2029 Insurance [facility] Care Teams Director Museum Or Zoo Relationship Specialty Start Date End Date Kamari oCrtez MD [address] [place] [address] PCP - General Family Practice 12/20/24
--- OUTSIDE RECORDS SUMMARY | 2024-12-20 16:06 | XMS_ITS | Encounter Summary ---
Author Organization [facility] [employer] [facility] Address [address] [place] [address] Care Team Providers Care Chief Station Engineer Name Role Phone Kamari Cortez MD Primary Care Provider [phone] Encounter Details Date Type Department Care Team ([facility] Contact Info) Description 12/20/2024 Abstract [facility] Oncology and Hematology [place] [address] [place] [address] Devante Otero MD [facility] [employer] [address] [place] [address] Social History Tobacco Use Types Packs/Day Years Used Date Smoking Tobacco: Every Day Cigarettes 0.9 35.5 Started: 07/01/1989 Smokeless Tobacco: Never Alcohol Use Standard Drinks/Week Comments Yes 0 (1 standard drink = 0.6 oz pur e alcohol) Socially Comments Unknown Sex and Gender Information Value Date Recorded Sex Assigned at Not on file Legal Sex Female 3:00 PM CDT Gender Identity Not on file Sexual Orientation Not on file documented as of this encounter Plan of Treatment Upcoming Encounters Date Type Department Care Team (Late st Contact Info) Description 01/03/2025 4:30 PM CDT Telephone Check Up [facility] Oncology and Hematology - [place] [address] [place] [address] Devante Otero MD [address] [employer] [place] [address] documented as of this encounter Visit Diagnoses Not on filedocumented in this encounter Care Teams Chief Station Engineer Relationship Specialty Start Date End Date Kamari Cortez MD [address] [place] [address] PCP - General Family Practice 12/20/24 documented as of this encounter
== END 2024-12-20 16:01 | disposition home or self-care (01) ==
PROVIDERS: PCP Family Medicine; Visit Provider Internal Medicine Hematology & Oncology
DX: D72.9 Disorder of white blood cells, unspecified (principal)
CPT/HCPCS: 77075

== ENCOUNTER 2025-01-03 11:13 | Outpatient (CLI) | payer OTHER, SELFPAY ==
[2025-01-03 11:54] LABS: Hematocrit 41.5 % (37.0-47.0); Hemoglobin 13.6 g/dL (12.0-15.0); Mean Corpuscular HGB Conc 32.8 g/dl (32-36); Mean Corpuscular Hemoglobin 28.8 pg (26-34); Mean Corpuscular Volume 87.9 fl (80-100); Mean Platelet Volume 11.4 fl (7.4-10.4); Platelet Count Result 195 k/mm3 (150-375); Red Blood Count 4.72 M/mm3 (4.2-5.4); Red Cell Distribution Width 12.8 % (11.5-14.5); White Blood Count 11.8 K/mm3 (4.5-10.0)
[2025-01-03 12:12] LABS: Albumin Level 4.7 g/dL (3.5-5.1); Anion Gap 12 mmol/L (4-12); Blood Urea Nitrogen 18 mg/dL (7-17); Calcium 10.2 mg/dL (8.4-10.2); Carbon Dioxide 26 mmol/L (22-30); Chloride 98 mmol/L (98-107); Estimated Glomerular Filt Rate 25; Glucose 122 mg/dL (65-110); Phosphorus 3.1 mg/dL (2.5-4.5); Potassium 3.4 mmol/L (3.4-5.0); Sodium 136 mmol/L (137-145)
--- OUTSIDE RECORDS SUMMARY | 2025-01-03 12:18 | XMS_ITS | Clinical Summary ---
Author Organization [facility] Address [address] [place] [address] Care Team Providers Care Yard General Car Supervisor Name Role Phone Bob Salmeron MD Primary Care Provider [phone] Source Comments [facility],non-owned Affiliates and Associated Physician Practices is amultiple site organization consisting of ambulatory clinics and hospital sitesin [place], [place], [place] and [place]. This disclosure is being madepursuant to the Care Everywhere program and may not contain all information available regarding this patient. Last updated 18.[facility] Social History Tobacco Use Types Packs/Day Years Used Date Smoking Tobacco: Never Assessed Comments Unknown Sex and Gender Information Value Date Recorded Sex Assigned at Not on file Legal Sex Female 6:40 AM HOMICIDE SQUAD LIEUTENANT Gender Identity Not on file Sexual Orientation [...] patient's age to complete this topic Insurance [facility] MEDICARE SELF PAY NO INSURANCE Member Subscriber Plan / Payer (Ef fective for All Dates) Name:RadhaPrabhakar Member ID:Not on file Relation to Subscriber:Not on file Name:RADHAPRABHAKAR Subscriber ID:Not on file (Home) Address: [address] [place] [id number] Payer ID:Not on file Group ID:Not on file Type:Self Pay Address: [place], [place] Care Teams Yard General Car Supervisor Relationship Specialty Start Date End Date Bob Salmeron MD [address] [place] [address] PCP - General 10/08/21
--- OUTSIDE RECORDS SUMMARY | 2025-01-03 12:18 | XMS_ITS | Clinical Summary ---
Author Organization [facility] Jaquanleti cruz Collin Address [address] [place] [address] Care Team Providers Care Command And Control Name Role Phone Kamari Cortez MD Primary Care Provider [phone] Allergies Active Allergy Reactions Criticality Noted Date [...] Encounters Date Type Department Care Team Description 12/28/2024 Orders Only [facility] Oncology and Hematology - Alessandro [address] [place] [address] Devante Otero MD 12/25/2024 External Device Data STL ABSTRACTION Provider, Abstract 12/25/2024 External Device Data STL ABSTRACTION Provider, Abstract 12/25/2024 External Device Data STL ABSTRACTION Provider, Abstract 12/25/2024 Orders Only [facility] Oncology and Hematology - [place] [address] [place] [id number] Devante Otero MD 12/20/2024 2:30 PM CDT Office Visit [facility] Oncology and Hematology - [place] [address] [place] [id number] Devante Otero MD Plasma cell disorder (Primary Dx) 12/20/2024 Abstract [facility] Oncology and Hematology - [place] [address] [place] [phone] Devante Otero MD from Last 3 Months [...] 2:29 PM CDT Height 170.2 cm (5' 7) 12/20/2024 2:29 PM CDT Body Mass Index 34.58 12/20/2024 2:29 PM CDT Plan of Treatment Upcoming Encounters Date Type Department Care Team (Late st Contact Info) Description 01/03/2025 4:30 PM CDT Telephone Check Up [facility] Oncology and Hematology - [place] [address] [place] [address] Devante Otero MD [address] [facility] [address] [place] [address] Health Maintenance Due Date Last Done Comments Pre-Diabetes and Diabetes Screening 1955 DTAP/TDAP/TD VACCINES (1 - Tdap) 1973 PNEUMOCOCCAL VACCINE 50+ YEARS (1 of 2 - PCV) 05/10/19 73 BREAST CANCER SCREENING 1994 COLORECTAL SCREENING 1999 Colorectal Cancer Screening 1999 FIT-DNA Q 3 years 1999 FIT/FOBT Q 1 year 1999 Flex Sig/CT Colonography Q 5 years 1999 Lung Cancer Screening 2004 ZOSTER VACCINE (1 of 2) 2004 OSTEOPOROSIS SCREENING 2019 INFLUENZA VACCINE (#1) 2024 RSV VACCINE (60+ or ) (1 - 1-dose 75+ series) 2029 Procedures Procedure Name Priority Date/Time Associated Diagnosis Comments IGG Routine 12/20/2024 4:54 PM CDT KAPPA/LAMBDA LIGHT CHAINS Routine 12/20/2024 4:09 PM CDT PROTEIN ELECTROPHORESIS, CSF Routine 12/20/2024 3:00 PM CDT XR BONE SURVEY COMPLETE Routine 12/20/2024 8:35 AM CDT from Last 3 Months Results * IGG (12/20/2024 4:54 PM CDT) Blood Devante Otero MD CHEMISTRY ORDERABLES Final Resu lt * KAPPA/LAMBDA, FREE LIGHT CHAINS (12/20/2024 4:09 PM CDT) Blood Devante Otero MD CHEMISTRY ORDERABLES Final Resu lt * PROTEIN ELECTROPHORESIS, CSF (12/20/2024 3:00 PM CDT) Cerebrospinal fluid CEREBROSPINAL FLUID / Unknown us Devante Otero MD BODY FLUIDS AND STOOLS Final Re sult * XR BONE SURVEY COMPLETE (12/20/2024 8:35 AM CDT) Anatomical Region Laterality Modality Other Devante Otero MD DIAGNOSTIC IMAGING ORDERABLES F inal Result from Last 3 Months Insurance [facility] MCR Care Teams Command And Control Relationship Specialty Start Date End Date Kamari Cortez MD [address] [place] [address] PCP - General Family Practice 12/20/24
[2025-01-03 12:19] LABS: Parathyroid Intact 39.3 pg/mL (14.5-75.2)
== END 2025-01-03 11:14 | disposition home or self-care (01) ==
LOC: ANHLAB 11:14
PROVIDERS: PCP Family Medicine; Visit Provider Internal Medicine Nephrology
DX: R94.4 Abnormal results of kidney function studies (principal); I10 Essential (primary) hypertension
CPT/HCPCS: 36415; 80069; 83970; 85027

== ENCOUNTER 2025-03-20 10:11 | Outpatient (CLI) | payer OTHER, SELFPAY ==
[2025-03-20 11:10] LABS: Alanine Aminotransferase 21 U/L (6-35); Albumin Level 4.8 g/dL (3.5-5.1); Alkaline Phosphatase 104 U/L (38-126); Anion Gap 10 mmol/L (4-12); Aspartate Amino Transferase 38 U/L (14-36); Bilirubin,Total 0.6 mg/dL (0.2-1.3); Blood Urea Nitrogen 15 mg/dL (7-17); Calcium 9.6 mg/dL (8.4-10.2); Carbon Dioxide 25 mmol/L (22-30); Chloride 102 mmol/L (98-107); Estimated Glomerular Filt Rate 45; Glucose 99 mg/dL (65-110); Potassium 3.9 mmol/L (3.4-5.0); Sodium 137 mmol/L (137-145); Total Protein 8.1 g/dL (6.3-8.2)
== END 2025-03-20 10:12 | disposition home or self-care (01) ==
PROVIDERS: PCP Family Medicine; Visit Provider Internal Medicine Nephrology
DX: R94.4 Abnormal results of kidney function studies (principal); R60.9 Edema, unspecified
CPT/HCPCS: 36415; 80053; 84100

== ENCOUNTER 2025-05-22 10:44 | Outpatient (CLI) | payer OTHER, SELFPAY ==
[2025-05-22 11:36] LABS: Hematocrit 41.9 % (37.0-47.0); Hemoglobin 14.0 g/dL (12.0-15.0); Mean Corpuscular HGB Conc 33.4 g/dl (32-36); Mean Corpuscular Hemoglobin 29.3 pg (26-34); Mean Corpuscular Volume 87.7 fl (80-100); Platelet Count Result 192 k/mm3 (150-375); Red Blood Count 4.78 M/mm3 (4.2-5.4); White Blood Count 9.8 K/mm3 (4.5-10.0)
[2025-05-22 12:08] LABS: Albumin Level 4.7 g/dL (3.5-5.1); Anion Gap 10 mmol/L (4-12); Blood Urea Nitrogen 17 mg/dL (7-17); Calcium 9.3 mg/dL (8.4-10.2); Carbon Dioxide 26 mmol/L (22-30); Chloride 100 mmol/L (98-107); Estimated Glomerular Filt Rate 43; Glucose 107 mg/dL (65-110); Potassium 3.7 mmol/L (3.4-5.0); Sodium 136 mmol/L (137-145)
[2025-05-22 12:19] LABS: Parathyroid Intact 58.6 pg/mL (14.5-75.2)
[2025-05-22 12:42] LABS: Total Protein Urine Random < 5 mg/dL; Ur Ttl Prot Creatinine Ratio < 0.02 mg/mg (0-0.20)
--- OUTSIDE RECORDS SUMMARY | 2025-05-22 13:27 | XMS_ITS | Clinical Summary ---
Author Organization [facility] Address [address] [place] [address] Care Team Providers Care Health And Wellness Sales Consultant Name Role Phone Bob Salmeron MD Primary Care Provider [phone] Source Comments [facility],non-owned Affiliates and Associated Physician Practices is amultiple site organization consisting of ambulatory clinics and hospital sitesin [place], [place], [place] and [place]. This disclosure is being madepursuant to the Care Everywhere program and may not contain all information available regarding this patient. 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 Gender Identity Not on file Sexual Orientation [...] 2004 ZOSTER VACCINE (1 of 2) 2004 DEPRESSION SCREENING 08/01/2024 COVID-19 VACCINE (1 - 2023-2 5 season) 2025 INFLUENZA VACCINE (#1) 2025 Respiratory Syncytial Virus (RSV) Vaccine Pt: [...] to complete this topic Insurance [employer] [facility] MEDICARE SELF PAY NO INSURANCE Member Subscriber Plan / Payer (Ef fective for All Dates) Name:RadhaPrabhakar Member ID:Not on file Relation to Subscriber:Not on file Name:RADHAPRABHAKAR Subscriber ID:Not on file (Home) Address: [address] [place] [id number] Payer ID:Not on file Group ID:Not on file Type:Self Pay Address: [place], [place] Care Teams Health And Wellness Sales Consultant Relationship Specialty Start Date End Date Bob Salmeron MD [address] [place] [address] PCP - General 10/08/21
--- OUTSIDE RECORDS SUMMARY | 2025-05-22 13:27 | XMS_ITS | Clinical Summary ---
Author Organization [facility] Address [address] [place] [id number] Care Team Providers Care Business Analytics Intern Name Role Phone Unavailable Primary Care Provider [...] 2004 Dexa Scan (General) 2019 COVID-19 Vaccine ( - 2024-2 6 season) 2025 Influenza Adult (#1) 2025 RSV Immunization or 60+ Years (1 - 1-dose 75+ series) 2029 Hepatitis A Vaccines Aged Out No long er eligible based on patient's age to complete this topic Meningococcal B Vaccine Aged Out No l onger eligible based on patient's age to complete this topic Meningococcal Vaccine Aged Out No tegan spike eligible based on patient's age to complete this topic RSV Immunizations Under 20 Months Aged Out No longer eligible based on patient's age to complete this topic
--- OUTSIDE RECORDS SUMMARY | 2025-05-22 13:27 | XMS_ITS | Clinical Summary ---
Author Organization [facility] Bossman Lutz Address [address] [place] [address] Care Team Providers Care Economist Research Assistant Name Role Phone Kamari Cortez MD Primary Care Provider [phone] Allergies Active Allergy Reactions Criticality Noted Date [...] Encounters Date Type Department Care Team Description 04/23/2025 External Device Data STL ABSTRACTION Provider, Abstract 04/16/2025 External Device Data [facility]L ABSTRACTION Provider, Abstract 04/09/2025 External Device Data [facility]L ABSTRACTION Provider, Abstract from Last 3 Months Family History Medical History Relation Name Comments No Known Problems Brother Heart Disease Father Diabetes Mother Heart Disease Sister 1 No Known Problems Sister 2 Relation Name Status Comments Brother Alive Father Mother Sister 1 Sister 2 Alive Social History Tobacco Use Types Packs/Day Years Used Date Smoking Tobacco: Every Day Cigarettes 0.9 35.9 Started: 07/01/1989 Smokeless Tobacco: Never Tobacco Cessation:Ready [...] Care Team (Late st Contact Info) Description 10/07/2025 11:30 AM CDT Office Visit [facility] Oncology [facility] H[facility]ology [facility] [address] [facility] [address] [place] [address] Devante Otero MD [address] [facility] [address] [place] [address] Health Maintenance Due Date Last Done Comments DTAP/TDAP/TD VACCINES (1 - Tdap) 1973 PNEUMOCOCCAL VACCINE 50+ YEARS (1 of 2 - PCV) 05/10/19 73 BREAST CANCER SCREENING 1994 COLORECTAL SCREENING 1999 Colorectal Cancer Screening 1999 FIT-DNA Q 3 years 1999 FIT/FOBT Q 1 year 1999 Flex Sig/CT Colonography Q 5 years 1999 Lung Cancer Screening 2004 ZOSTER VACCINE (1 of 2) 2004 OSTEOPOROSIS SCREENING 2019 INFLUENZA VACCINE (#1) 2025 RSV VACCINE (60+ or ) (1 - 1-dose 75+ series) 2029 Insurance [facility] Address: [place] [address] Care Teams Economist Research Assistant Relationship Specialty Start Date End Date Kamari Cortez MD [address] [place] [address] PCP - General Family Practice 12/20/24
== END 2025-05-22 10:45 | disposition home or self-care (01) ==
PROVIDERS: PCP Family Medicine; Visit Provider Internal Medicine Nephrology
DX: R94.4 Abnormal results of kidney function studies (principal); I10 Essential (primary) hypertension
CPT/HCPCS: 36415; 80069; 82570; 83970; 84156; 85027